=== PATIENT | male | born 1990 | race African-American/Black ===

== ENCOUNTER 2019-01-22 11:45 | Emergency (ER) | payer OTHER, SELFPAY ==
--- NOTE | 2019-01-22 13:13 | EDPHYS ---
Physician Documentation [facility] Name: Tyler Latif Age: 28 yrs Sex: Male : 1990 Arrival Date: 01/22/2019 Time: 11:48 Bed 20 Private MD: ED Physician Saroj Little HPI: 01/22 12:15 This 28 yrs old Black Male presents to ER via Ambulatory with complaints of Boil. kav 12:36 This 28 yrs old Black Male presents to ER via Ambulatory with complaints of Boil. kav 12:34 Onset: The symptoms/episode began/occurred acutely. kav 12:36 The patient presents with an abscess of the right inner thigh, The patient presents kav with cellulitis of the right inner thigh. Description: The affected area is moderate sized, localized, draining, erythematous, warm. Onset: The symptoms/episode began/occurred acutely, 3 day(s) ago. Possible cause(s): unknown. Associated signs and symptoms: Pertinent positives: discharge, erythema, Pertinent negatives: fever. Modifying factors: the symptoms are alleviated by nothing, the symptoms are aggravated by movement, squeezing the lesion and expressing the contents. Severity of symptoms: At their worst the symptoms were moderate, just prior to arrival. The patient has experienced similar episodes in the past, multiple times, and the symptoms today are exactly the same. The patient has not recently seen a physician. Historical: - Allergies: 12:06 No Known Allergies; hb - Home Meds: 12:06 Glimepiride Oral [Active]; lisinopril 10 mg Oral tab 1 tab once daily [Active]; hb - PMHx: 12:06 Diabetes - NIDDM; Hypertension; hb - Immunization history:: Adult Immunizations up to date. - Social history:: Smoking status: Patient uses tobacco products, denies chronic smoking, but will smoke occasionally. - Ebola Screening: : No symptoms or risks identified at this time. - Family history:: not pertinent. - Hospitalizations: : No recent hospitalization is reported. ROS: 12:39 Constitutional: Negative for fever, chills, and weight loss, Eyes: Negative for injury, kav pain, redness, and discharge, ENT: Negative for injury, pain, and discharge, Neck: Negative for injury, pain, and swelling, Cardiovascular: Negative for chest pain, palpitations, and edema, Respiratory: Negative for shortness of breath, cough, wheezing, and pleuritic chest pain, Abdomen/GI: Negative for abdominal pain, nausea, vomiting, diarrhea, and constipation, Back: Negative for injury and pain, : Negative for injury, bleeding, discharge, and swelling, MS/Extremity: Negative for injury and deformity, Neuro: Negative for headache, weakness, numbness, tingling, and seizure, Psych: Negative for depression, anxiety, suicide ideation, homicidal ideation, and hallucinations, Allergy/Immunology: Negative for hives, rash, and allergies, Endocrine: Negative for neck swelling, polydipsia, polyuria, polyphagia, and marked weight changes, Hematologic/Lymphatic: Negative for swollen nodes, abnormal bleeding, and unusual bruising. 12:39 Skin: Positive for abscess, cellulitis, erythema, swelling, of the right inner thigh. Exam: 12:39 Constitutional: This is a well developed, well nourished patient who is awake, alert, kav and in no acute distress. Head/Face: Normocephalic, atraumatic. Eyes: Pupils equal round and reactive to light, extra-ocular motions intact. Lids and lashes normal. Conjunctiva and sclera are non-icteric and not injected. Cornea within normal limits. Periorbital areas with no swelling, redness, or edema. ENT: Nares patent. No nasal discharge, no septal abnormalities noted. Tympanic membranes are normal and external auditory canals are clear. Oropharynx with no redness, swelling, or masses, exudates, or evidence of obstruction, uvula midline. Mucous membranes moist. Neck: Trachea midline, no thyromegaly or masses palpated, and no cervical lymphadenopathy. Supple, full range of motion without nuchal rigidity, or vertebral point tenderness. No Meningismus. Chest/axilla: Normal chest wall appearance and motion. Nontender with no deformity. No lesions are appreciated. Cardiovascular: Regular rate and rhythm with a normal S1 and S2. No gallops, murmurs, or rubs. Normal PMI, no JVD. No pulse deficits. Respiratory: Lungs have equal breath sounds bilaterally, clear to auscultation and percussion. No rales, rhonchi or wheezes noted. No increased work of breathing, no retractions or nasal flaring. Abdomen/GI: Soft, non-tender, with normal bowel sounds. No distension or tympany. No guarding or rebound. No evidence of tenderness throughout. Back: No spinal tenderness. No costovertebral tenderness. Full range of motion. Male : Normal genitalia with no discharge or lesions. MS/ Extremity: Pulses equal, no cyanosis. Neurovascular intact. Full, normal range of motion. Neuro: Awake and alert, GCS 15, oriented to person, place, time, and situation. Cranial nerves II-XII grossly intact. Motor strength 5/5 in all extremities. Sensory grossly intact. Cerebellar exam normal. Normal gait. Psych: Awake, alert, with orientation to person, place and time. Behavior, mood, and affect are within normal limits. 12:39 Skin: abscess, that is moderate sized, of the right leg and right inner thigh, with drainage, that is serosanguinous, cellulitis, that is moderate, well demarcated, on the right inner thigh. Vital Signs: 12:04 BP 155 / 115; Pulse 122; Resp 18; Temp 96.9(TE); Pulse Ox 97% on R/A; Pain 9/10; hb 13:31 BP 117 / 57; Pulse 100; Resp 16; Pulse Ox 100% ; bp MDM: 12:15 Medical screening is not applicable. kav 12:39 Differential diagnosis: abscess, cellulitis. Data reviewed: vital signs, nurses notes. kav Administered Medications: No medications were administered Disposition: 14:59 Co-signature as Attending Physician, Saroj Little MD I agree with the assessment and kdr plan of care. Disposition: 01/22/19 13:12 Discharged to Home. Impression: Cutaneous abscess of groin, Cellulitis of groin. - Condition is Stable. - Discharge Instructions: Skin Abscess, Cellulitis, Adult. - Prescriptions for Clindamycin HCl 300 mg Oral Capsule - take 1 capsule by ORAL route every 6 hours for 10 days; 40 capsule. Tramadol 50 mg Oral Tablet - take 1 tablet by ORAL route every 8 hours as needed; 12 tablet. Bactrim DS 800- 160 mg Oral Tablet - take 1 tablet by ORAL route every 12 hours for 10 days; 20 tablet. - Work release form, Medication Reconciliation Form, Thank You Letter, Antibiotic Education, Prescription Opioid Use form. - Follow up: Private Physician; When: 5 - 6 days; Reason: Recheck today's complaints, Continuance of care, Re-evaluation by your physician. - Problem is new. - Symptoms are unchanged. Signatures: Saroj Little MD MD kdr Vern, Katherine, BRICK OR BLOCK MAKER BRICK OR BLOCK MAKER Paloma Avila RN RN iw Trish Alvarado RN RN Corrections: (The following items were deleted from the chart) :39 12:35 Onset: The symptoms/episode began/occurred acutely, 3 day(s) ago, ka ka :39 12:35 Associated signs and symptoms: Pertinent positives: The patient does not have any [facility] pertinent positive signs or symptoms associated with pediatric illness. Pertinent negatives: fever, ka :39 12:35 Modifying factors: The patient symptoms are alleviated by remaining still, the ka patient symptoms are aggravated by hot environment, movement, ka :39 12:35 The patient has experienced similar episodes in the past, several times, today's ka symptoms are similar, to when the patient was apparently diagnosed with MRSA, [facility] :39 12:35 The patient has not recently seen a physician, [facility] 13:31 13:12 01/22/2019 13:12 Discharged to Home. Impression: Cutaneous abscess of groin; iw Cellulitis of groin. Condition is Stable. Forms are Medication Reconciliation Form, Thank You Letter, Antibiotic Education, Prescription Opioid Use. Follow up: Private Physician; When: 5 - 6 days; Reason: Recheck today's complaints, Continuance of care, Re-evaluation by your physician. Problem is new. Symptoms are unchanged. ka
--- NOTE | 2019-01-22 13:13 | ER ---
Nurse's Notes [facility] Name: Tyler Latif Age: 28 yrs Sex: Male : 1990 Arrival Date: 01/22/2019 Time: 11:48 Bed 20 Private MD: Diagnosis: Cutaneous abscess of groin;Cellulitis of groin Presentation: 01/22 12:03 Presenting complaint: Right upper thigh abscess x 3 days. Transition of care: patient hb was not received from another setting of care. Onset of symptoms was January 19, 2019. Risk Assessment: Do you want to hurt yourself or someone else? Patient reports no desire to harm self or others. Care prior to arrival: None. 12:03 Method Of Arrival: Ambulatory hb 12:03 Acuity: SAUL 3 hb Historical: - Allergies: 12:06 No Known Allergies; hb - Home Meds: 12:06 Glimepiride Oral [Active]; lisinopril 10 mg Oral tab 1 tab once daily [Active]; hb - PMHx: 12:06 Diabetes - NIDDM; Hypertension; hb - Immunization history:: Adult Immunizations up to date. - Social history:: Smoking status: Patient uses tobacco products, denies chronic smoking, but will smoke occasionally. - Ebola Screening: : No symptoms or risks identified at this time. - Family history:: not pertinent. - Hospitalizations: : No recent hospitalization is reported. Screenin:31 Abuse screen: Denies threats or abuse. Denies injuries from another. Nutritional bp screening: No deficits noted. On. Tuberculosis screening: No symptoms or risk factors identified. Fall Risk None identified. Assessment: 12:15 General: Appears in no apparent distress. comfortable, Behavior is calm, cooperative, bp appropriate for age. Pain: Complains of pain in right inner thigh. Derm: Abscess located on right inner thigh is golf ball sized, has purulent drainage. 13:30 Reassessment: PT D/C HOME AMBULATORY WITH FAMILY, DX WITH CUTANEOUS ABSCESS. bp Vital Signs: 12:04 BP 155 / 115; Pulse 122; Resp 18; Temp 96.9(TE); Pulse Ox 97% on R/A; Pain 9/10; hb 13:31 BP 117 / 57; Pulse 100; Resp 16; Pulse Ox 100% ; bp ED Course: 11:48 Patient arrived in ED. as 12:04 Triage completed. hb 12:06 Arm band placed on. hb 12:10 Patient has correct armband on for positive identification. Placed in gown. Bed in low bp position. Call light in reach. Side rails up X2. 12:14 Tyler Palma, RN is Primary Nurse. bp 12:15 Sandrita Patton FNP is PHCP. kav 12:15 Saroj Little MD is Attending Physician. kav 13:32 No provider procedures requiring assistance completed. Patient did not have IV access bp during this emergency room visit. Administered Medications: No medications were administered Outcome: 13:12 Discharge ordered by . kav 13:31 Patient left the ED. iw Signatures: Sandrita Patton FNP FNP kav Martinez, Amelia as Paloma Marin RN RN iw Trish Alvarado, RN RN hb Tyler Palma, RN RN bp
[2019-01-22 13:41] VITALS: BP 155/115; TEMP 96.9; O2SAT 97
== END 2019-01-22 13:31 | disposition home or self-care (01) ==
LOC: ER 11:45
DX: L03.314 Cellulitis of groin (principal); I10 Essential (primary) hypertension; E11.9 Type 2 diabetes mellitus without complications; Z72.0 Tobacco use
CPT/HCPCS: 99281

== ENCOUNTER 2022-11-06 16:53 | Emergency (ER) | payer SELFPAY ==
--- OUTSIDE RECORDS SUMMARY | 2022-11-06 16:59 | XMS REPORT | Continuity of Care Document ---
:1990 Author Organization [facility] t Address [address] [place] [address] Care Team Providers Name Role Phone Benoit Barrios DO Primary Care Physician Hawa Lorenzo RN Attending Clinician MARGUERITE INTERIANO Attending Clinician Unavailable Marguerite Interiano MD Attending Clinician Triny Lang Attending Clinician Vtc-Lab Attending Clinician Unavailable Leilani Oliva LVN Attending Clinician Della Kaye MD Attending Clinician Reina Garcia MD Attending Clinician DELLA KAYE Attending Clinician Unavailable Cheikh Miguel MD Attending Clinician Dank Corrigan MD Attending Clinician Reina Garcia MD Admitting Clinician Problems Condition Condition Condition Status Onset Resolution Last Treating Co mments Source Name Details Category Date Date Treatment Clinician Date Morbid Morbid Disease Active Univers obesity obesity 9-28 [place] of [place] mass index mass index 00 Me dical of of Branch 40.0-49.9 40.0-49.9 Sepsis Sepsis Disease Active Univers 9-28 ity of 00:00: [place] 00 Medical Branch Hypotensio Hypotensio Disease Active U nivers n n 9-28 ity of 00:00: [place] 00 Medical Branch Allergies, Adverse Reactions, Alerts Allergy Allergy Status Severity Reaction(s) Onset Inactive Treating Comm ents Source Name Type Date Date Clinician Rodrick Calles Active Other - See 2014-11 'liver U nivers n ty to comments 11-23 swelling" ity o f adverse 00:00: [place] reaction 00 Medical s Branch Social History Social Habit Start Date Stop Date Quantity Comments Source Exposure to Not sure [facility] SARS-CoV-2 (event) Medica l Branch Tobacco use and 2021-08-15 2021-08-[address] [facility] exposure 00:00:00 00:00:00 Medical Branch Education 2021-08-15 2021-08-15 13 [facility] 00:00:00 00:00:00 Medical Branch Sex Assigned At [address] 1990 [facility] 00:00:00 00:00:00 Medical Branch Smoking Status Start Date Stop Date Source Former smoker 2021-08-15 00:00:00 2021-08-15 00:00:00 [facility] Medical Branch Medications Ordered Filled Start Stop Current Ordering Indication Dosage Frequency Signature Comments Components Source Medication Medication Date Date Medication? Clinician (SIG) Name Name gabapentin 2020-11- No [id number] 200mg Take 2 Univers 100 mg 0-11 11-08 capsules ity of capsule 00:00: 00:00 by mouth 2 Lucian as 00 :00 (two) Medical times Branch daily. aspirin 81 2020-11 Yes [id number] 81mg Take 1 U nivers mg chewable 0-08 tablet by ity of tablet 00:00: mouth [place] 00 daily. Medical Branch atorvastati 2020-11 Yes [id number] 20mg Take 1 Univers n 20 mg 0-07 tablet by ity of tablet 00:00: mouth at [place] 00 bedtime. Medical Branch insulin 2020-11 Yes [id number] Inject 3 Un raul regular 0-07 units SQ ity of human 100 00:00: daily with [place] unit/mL 00 lunch Medical injection Branch lancets 21 2020-11 Yes [id number] Use as U nivers gauge Misc 0-07 directed ity o f 00:00: [place] 00 Medical Branch blood sugar 2020-11 Yes [id number] Use as Univers diagnostic 0-07 directed ity o f strip 00:00: [address] Insulin 2020-11 Yes [id number] Use as Univ ers [place], 0-07 directed ity of Disposable, 00:00: [place] 32 gauge x 00 Medical 16" Ndle Branch insulin NPH 2020-11- No [id number] 14U inject 14 Univers and regular 0-07 11-07 Units ity of human 70-30 00:00: 04:59 under the [place] 100 unit/mL 00 :00 skin 2 Medica l (70-30) (two) Branch injection times daily before breakfast and dinner for 30 days. Immunizations Ordered Immunization Filled Immunization Date Status Commen ts Source Name Name Pneumococcal 2014-05-20 Completed [place] o f Polysaccharide, 00:00:00 [place] Med ical PPSV23 (PNEUMOVAX) Branch Meningococcal 2013-02-19 Completed [facility] Polysaccharide 00:00:00 [facility] keturah (groups A, C, Y and Branc h W-135) conjugate vaccine (MCV4P) TDAP 2013-02-19 Completed [facility] 00:00:00 [facility] Vital Signs Vital Name Observation Time Observation Value Comments Source Systolic blood 2021-08-28 20:36:00 139 mm[Hg] Univer sity of pressure [facility] Diastolic blood 2021-08-28 20:36:00 93 mm[Hg] Unive rsity of [facility] Heart rate 2021-08-28 20:36:00 90 /min [facility] Body temperature 2021-08-28 20:33:00 36.33 [facility] height 2021-08-28 20:33:00 182.9 cm [facility] Body weight 2021-08-28 20:33:00 159.031 kg [facility] BMI 2021-08-28 20:33:00 47.55 kg/m2 [facility] Oxygen saturation in 2021-08-28 20:33:00 99 /min [facility] Arterial blood by [facility] Pulse oximetry Branch Procedures Procedure Date / Time Performed Performing Clinician Diamond elizondo URINALYSIS 2021-08-28 21:53:00 Badalamenti, [facility] PROTEIN CREAT RATIO 2021-08-28 21:53:00 Marguerite Interiano [facility] URINE RANDOM [facility] Branch PHOSPHORUS 2021-08-28 21:50:00 Laisha [facility] URIC ACID 2021-08-28 21:50:00 Marguerite Interiano [facility] MAGNESIUM 2021-08-28 21:50:00 Laisha [facility] COMP. METABOLIC PANEL 2021-08-28 21:50:00 Marguerite Interiano [facility] ([id number]) [facility] CBC WITH DIFF 2021-08-28 21:50:00 Laisha [facility] Encounters Start End Encounter Admission Attending Care Care Encounter Source Date/Time Date/Time Type Type Clinicians Facility Department ID 2021-09-27 2021-09-27 Patient Hawa Lorenzo [id number] Univers 00:00:00 00:00:00 Outreach E ARSHAD [id number] i [id number] [phone] [facility] 403 Branch 2021-09-25 2021-09-25 [id number] Univers 15:30:00 15:30:00 , MARGUERITE patel [facility] 2021-09-24 2021-09-24 Refill [facility] [id number] Univers 00:00:00 00:00:00 , Marguerite CREWS [id number] ity ulysses [id number] [place] [phone] [facility] AND [place] [address] [facility] 2021-09-21 2021-09-21 Patient Hawa Lorenzo [id number] Univers 00:00:00 00:00:00 Outreach E ARSHAD [id number] [id number] [id number] [facility] [address] Branch 2021-09-08 2021-09-08 Telephone [facility] [id number] Univers 00:00:00 00:00:00 , Marguerite CREWS [id number] ity [id number] [phone] [address] DIABETES [facility] 2021-09-04 2021-09-04 Patient Hawa Lorenzo [id number] Univers 00:00:00 00:00:00 Outreach E Arshad [id number] i ty [id number] [phone] [facility] [address] Branch 2021-09-01 2021-09-01 Patient Chace Lang [id number] Univers 00:00:00 00:00:00 Outreach Triny E Arshad [id number] i ty [id number] [id number] [facility] [address] Branch 2021-08-31 2021-08-31 Patient Hawa Lorenzo [id number] Univers 09:10:53 11:10:53 Outreach E Arshad [id number] i ty [place] [id number] [id number] [facility] 403 Branch 2021-08-28 2021-08-28 Graphic Manager Vt-Lab [facility] [id number] Univers 16:41:20 16:56:20 Visit Marguerite Interiano [id number] 0 it[id number] [phone] [facility] [place] [address] [facility] 2021-08-28 2021-08-28 Office Laisha [facility] [id number] Univers 15:03:38 15:33:38 Visit Marguerite [id number] ity [id number] [phone] [facility] [place] [address] [facility] 2021-08-28 2021-08-28 Outpatient R [facility] [id number] Univers 15:30:00 15:30:00 , MARGUERITE patel of [facility] 2021-08-28 2021-08-28 Patient Hawa Lorenzo 1.2.840.114 [id number] Univers 00:00:00 00:00:00 Outreach E Arshad [id number] i ty [id number] [phone] [address] 2021-08-25 2021-08-25 Transition Chace Oliva [id number] Univers 00:00:00 00:00:00 of Care Leilani Arshad [id number] ity [id number] [id number] [address] 2021-08-15 2021-08-24 Hospital VargasDella [facility] [id number] Univers 09:58:00 17:20:00 Encounter Reina Garcia [facility] [id number] ity of [place] [id number] [facility] [phone] [address] ([facility]) 2021-08-17 2021-08-17 Patient Hawa Lorenzo [id number] Univers 00:00:00 00:00:00 Outreach E Arshad [id number] i [id number] [id number] [address] 2021-08-15 2021-08-15 Emergency X VARGAS [facility] ERT [id number] Univers 09:58:00 09:58:00 DELLA ity of [facility] 2019-12-29 2019-12-29 [facility] [id number] Univers 01:24:33 02:37:00 Cheikh Arriaga [id number] ity of [place] [id number] [facility] [phone] [place] [id number] Branch 2019-07-30 2019-07-30 Emergency [facility] [id number] Univers 08:38:41 09:38:00 Dank Arriaga [id number] i ty [place] [id number] [facility] [phone] [facility] 084 Branch Results This patient has no known results.
[2022-11-06] MEDS ORDERED: IBUPROFEN 400 MG TAB ONE (17:19)
--- NOTE | 2022-11-06 18:20 | RAD REPORT ---
EXAM DESCRIPTION: RAD - Ankle Left 3 View - 11/06/2022 6:10 pm CLINICAL HISTORY: PAIN COMPARISON: Foot Left 3 View dated 11/06/2022 FINDINGS: No fracture or dislocation is seen. Moderate soft tissue swelling is evident. Small calcan eal spurs.
--- NOTE | 2022-11-06 18:21 | RAD REPORT ---
EXAM DESCRIPTION: RAD - Foot Left 3 View - 11/06/2022 6:10 pm CLINICAL HISTORY: PAIN COMPARISON: No comparisons FINDINGS: Moderate soft tissue swelling is seen along the medial aspect of the foot. No fracture or dislocation is evident. Small calcaneal spurs.
--- NOTE | 2022-11-06 18:36 | EDPHYS ---
Physician Documentation [facility] Name: Tyler Latif Age: 31 yrs Sex: Male : 1990 Arrival Date: 11/06/2022 Time: 16:55 Bed 9 Private MD: ED Physician Miguel Deleon HPI: 11/06 17:20 This 31 yrs old Black Male presents to ER via Ambulatory with complaints of Foot Injury.cp 17:20 The patient presents with an injury, pain, that is acute. The complaints affect the cp left ankle and left foot. Context: The problem was sustained at work, resulted from a mis-step, while stepping out of vehicle, the patient can partially bear weight, the patient is able to ambulate, with moderate difficulty. Onset: The symptoms/episode began/occurred today. Associated signs and symptoms: The patient has no apparent associated signs or symptoms. Treatment prior to arrival includes: no previous treatment. Historical: - Allergies: 17:02 No Known Allergies; iw - Home Meds: 17:02 Insulin: Regular Sub-Q [Active]; metoprolol tartrate 50 mg Oral tab [Active]; iw - PMHx: 17:02 Diabetes - NIDDM; Hypertension; iw - PSHx: 17:02 None; iw - Immunization history:: Client reports having NOT received the Covid vaccine. ROS: 17:25 Constitutional: Negative for body aches, chills, fever. cp 17:25 Eyes: Negative for injury, pain, redness, and discharge. cp 17:25 ENT: Negative for drainage from ear(s), ear pain, sore throat, difficulty swallowing, difficulty handling secretions. 17:25 Neck: Negative for pain with movement, pain at rest, stiffness. 17:25 Cardiovascular: Negative for chest pain. 17:25 Respiratory: Negative for cough, shortness of breath, wheezing. 17:25 Abdomen/GI: Negative for abdominal pain, nausea, vomiting, and diarrhea. 17:25 Back: Negative for pain at rest, pain with movement. 17:25 MS/extremity: Positive for pain, of the left ankle and left foot, Negative for paresthesias. 17:25 Neuro: Negative for altered mental status, dizziness, headache, weakness. 17:25 All other systems are negative. Exam: 17:30 Constitutional: The patient appears in no acute distress, alert, awake, non-toxic, well cp developed, well nourished, obese. 17:30 Head/Face: Normocephalic, atraumatic. cp 17:30 Neck: ROM/movement: is normal, is supple, without pain, no range of motions limitations. 17:30 Chest/axilla: Inspection: normal. 17:30 Cardiovascular: Rate: normal. 17:30 Respiratory: the patient does not display signs of respiratory distress, Respirations: normal, no use of accessory muscles, no retractions, labored breathing, is not present. 17:30 Abdomen/GI: Inspection: abdomen appears normal. 17:30 Back: pain, is absent, ROM is normal. 17:30 Musculoskeletal/extremity: Extremities: grossly normal except: noted in the mid lateral plantar surface of left foot and lateral ankle: pain and tenderness to palpation, pain with inversion of ankle, mild swelling noted, Perfusion: the extremity is normally perfused throughout, the left ankle and left foot Sensation intact. Vital Signs: 17:00 BP 152 / 101; Pulse 90; Resp 17; Temp 97.7(TE); Pulse Ox 100% on R/A; Weight 163.29 kg; iw Height 6 ft. 0 in. (182.88 cm); Pain 6/10; 17:00 Body Mass Index 48.82 (163.29 kg, 182.88 cm) iw Procedures: 18:45 Splinting: Splint applied to left ankle and left foot using walking boot. applied by cp nurse. MDM: 17:07 Patient medically screened. cp 17:30 Differential diagnosis: dislocation, closed fracture, sprain. cp 18:35 Data reviewed: vital signs, nurses notes, radiologic studies, plain films. cp 18:35 Test interpretation: by ED physician or midlevel provider: plain radiologic studies. cp Counseling: I had a detailed discussion with the patient and/or guardian regarding: the historical points, exam findings, and any diagnostic results supporting the discharge/admit diagnosis, radiology results, the need for outpatient follow up, a family practitioner, to return to the emergency department if symptoms worsen or persist or if there are any questions or concerns that arise at home. Response to treatment: the patient's symptoms have mildly improved after treatment, and as a result, I will discharge patient. 11/06 17:12 Order name: XRAY Foot LEFT 3 View; Complete Time: 18:29 cp 11/06 18:29 Interpretation: Reviewed report. cp 11/06 17:12 Order name: XRAY Ankle LEFT 3 view; Complete Time: 18:29 cp 11/06 18:29 Interpretation: Report reviewed. cp 11/06 18:28 Order name: Walking boot; Complete Time: 18:51 cp 11/06 18:28 Order name: Crutches; Complete Time: 18:51 cp Administered Medications: 17:23 Drug: Ibuprofen 800 mg Route: PO; iw Disposition Summary: 11/06/22 18:36 Discharge Ordered Location: Home cp Problem: new cp Symptoms: have improved cp Condition: Stable cp Diagnosis - Other sprain of left foot cp - Sprain of ankle - left cp Followup: cp - With: Private Physician - When: 1 week - Reason: Recheck today's complaints Discharge Instructions: - Discharge Summary Sheet cp - Ankle Sprain cp - Foot Sprain cp - RICE Therapy for Routine Care of Injuries cp - Form - Excuse from Work, School, or Physical Activity cp Forms: - Medication Reconciliation Form cp - Thank You Letter cp - Antibiotic Education cp - Prescription Opioid Use cp - Work release form cp Prescriptions: - Ibuprofen 800 mg Oral Tablet - take 1 tablet by ORAL route every 8 hours As needed take with food; 30 tablet; cp Refills: 0, Product Selection Permitted Signatures: Dispatcher [employer] Paloma Waggoner RN RN iw Tristan Mcrae PA PA cp Corrections: (The following items were deleted from the chart) 17:03 17:02 Home Meds: lisinopril 10 mg Oral tab 1 tab once daily; iw iw
--- NOTE | 2022-11-06 18:36 | ER ---
Nurse's Notes [facility] Name: Tyler Latif Age: 31 yrs Sex: Male : 1990 Arrival Date: 11/06/2022 Time: 16:55 Bed 9 Private MD: Diagnosis: Other sprain of left foot;Sprain of ankle-left Presentation: 11/06 17:00 Chief complaint: Patient states: Exiting the van and hurt left foot at 1200 today. iw Coronavirus screen: Vaccine status: Patient reports being unvaccinated. At this time, the client does not indicate any symptoms associated with coronavirus-19. Ebola Screen: No symptoms or risks identified at this time. Initial Sepsis Screen: Does the patient meet any 2 criteria? No. Patient's initial sepsis screen is negative. Does the patient have a suspected source of infection? No. Patient's initial sepsis screen is negative. Risk Assessment: Do you want to hurt yourself or someone else? Patient reports no desire to harm self or others. Onset of symptoms was November 06, 2022 at 12:00. 17:00 Method Of Arrival: Ambulatory iw 17:00 Acuity: SAUL 4 iw Triage Assessment: 17:02 General: Appears in no apparent distress. uncomfortable, Behavior is calm, cooperative, iw appropriate for age. Pain: Complains of pain in left foot Pain currently is 6 out of 10 on a pain scale. Musculoskeletal: pain with ambulation. Injury Description: pain. Historical: - Allergies: 17:02 No Known Allergies; iw - Home Meds: 17:02 Insulin: Regular Sub-Q [Active]; metoprolol tartrate 50 mg Oral tab [Active]; iw - PMHx: 17:02 Diabetes - NIDDM; Hypertension; iw - PSHx: 17:02 None; iw - Immunization history:: Client reports having NOT received the Covid vaccine. Vital Signs: 17:00 BP 152 / 101; Pulse 90; Resp 17; Temp 97.7(TE); Pulse Ox 100% on R/A; Weight 163.29 kg; iw Height 6 ft. 0 in. (182.88 cm); Pain 6/10; 17:00 Body Mass Index 48.82 (163.29 kg, 182.88 cm) iw ED Course: 16:55 Patient arrived in ED. mr 16:56 Page, Tristan, PA is PHCP. cp 16:56 Miguel Deleon DO is Attending Physician. cp 17:02 Triage completed. iw 17:02 Arm band placed on right wrist. iw 17:23 Paloma Marin RN is Primary Nurse. iw 18:12 XRAY Foot LEFT 3 View In Process Unspecified. EDMS 18:12 XRAY Ankle LEFT 3 view In Process Unspecified. EDMS Administered Medications: 17:23 Drug: Ibuprofen 800 mg Route: PO; iw Outcome: 18:36 Discharge ordered by MD. cp 19:15 Patient left the ED. iw Signatures: Dispatcher [employer] EDMS Hawa Olivo mr Paloma Marin RN RN iw Tristan Mcrae PA PA cp Corrections: (The following items were deleted from the chart) 17:03 17:02 Home Meds: lisinopril 10 mg Oral tab 1 tab once daily; iw iw
[2022-11-06 19:18] VITALS: BP 152/101; TEMP 97.7; O2SAT 100
== END 2022-11-06 19:15 | disposition home or self-care (01) ==
LOC: ER 16:53
DX: S93.692A Other sprain of left foot, initial encounter (principal); S93.402A Sprain of unspecified ligament of left ankle, initial encounter
CPT/HCPCS: 99283

== ENCOUNTER 2022-12-27 08:00 | Emergency (ER) | payer SELFPAY ==
--- OUTSIDE RECORDS SUMMARY | 2022-12-27 08:03 | XMS REPORT | Continuity of Care Document ---
:1990 Author Organization [facility] t Address [address] [place] [address] Care Team Providers Name Role Phone Benoit [...] nivers n n 9-28 ity of 00:00: [place] 00 Medical Branch Allergies, Adverse Reactions, Alerts [...] Quantity Comments Source Exposure to Not sure [facility] SARS-CoV-2 (event) Medica l Branch Tobacco use and 2021-08-15 2021-08-15 Never used [facility] exposure 00:00:00 00:00:00 Medical Branch Education 2021-08-15 2021-08-15 13 [facility] 00:00:00 00:00:00 Medical Branch Sex Assigned At [birth year] [facility] 00:00:00 00:00:00 Medical Branch Smoking Status Start Date Stop Date Source Former smoker 2021-08-15 00:00:00 2021-08-15 00:00:00 [facility] Medical Branch Medications Ordered Filled Start Stop Current Ordering Indication Dosage Frequency Signature Comments Components Source Medication Medication Date Date Medication? Clinician (SIG) Name Name gabapentin 2020-11- No [id number] 200mg Take 2 Univers 100 mg 0-11 11-08 capsules ity of capsule 00:00: 00:00 by mouth 2 Lucian as 00 :00 (two) Medical times Branch daily. aspirin 81 2020-11 Yes [id number] 81mg Take 1 U nivers mg chewable 0-08 tablet by ity of tablet 00:00: mouth [place] 00 daily. Medical Branch atorvastati 2020-11 Yes [id number] 20mg Take 1 Univers n 20 mg 0-07 tablet by ity of tablet 00:00: mouth at [place] 00 bedtime. Medical Branch insulin 2020-11 Yes [id number] Inject 3 Un raul regular 0-07 units SQ ity of human 100 00:00: daily with [place] unit/mL 00 lunch Medical injection Branch lancets 21 2020-11 Yes [id number] Use as U nivers gauge Misc 0-07 directed ity o f 00:00: [place] 00 Medical Branch blood sugar 2020-11 Yes [id number] Use as Univers diagnostic 0-07 directed ity o f strip 00:00: [address] Insulin 2020-11 Yes [id number] Use as Univ ers [place], 0-07 directed ity of Disposable, 00:00: [place] 32 gauge x 00 Medical 16" Ndle Branch insulin NPH 2020-11- No [id number] 14U inject 14 Univers and regular 0-07 11-07 Units ity of human 70-30 00:00: 04:59 under the [place] 100 unit/mL 00 :00 skin 2 Medica l (70-30) (two) Branch injection times daily before breakfast and dinner for 30 days. Immunizations Ordered Immunization Filled Immunization Date Status Commen ts Source Name Name Pneumococcal 2014-05-20 Completed [place] o f Polysaccharide, 00:00:00 [place] Med ical PPSV23 (PNEUMOVAX) Branch Meningococcal 2013-02-19 [facility] Polysaccharide 00:00:00 [facility] keturah (groups A, C, Y and Branc h W-135) conjugate vaccine (MCV4P) TDAP 2013-02-19 [facility] 00:00:00 [facility] Vital Signs Vital Name Observation Time Observation Value Comments Source Systolic blood 2021-08-28 20:36:00 139 mm[Hg] Univer sity of pressure [facility] Diastolic blood 2021-08-28 20:36:00 93 mm[Hg] Unive rsity of [facility] Heart rate 2021-08-28 20:36:00 90 /min [facility] Body temperature 2021-08-28 20:33:00 36.33 [facility] Body height 2021-08-28 20:33:00 182.9 cm [facility] Body weight 2021-08-28 20:33:00 159.031 kg [facility] BMI 2021-08-28 20:33:00 47.55 kg/m2 [facility] Oxygen saturation in 2021-08-28 20:33:00 99 /min [facility] Arterial blood by [facility] Pulse oximetry Branch Procedures Procedure Date / Time Performed Performing Clinician Diamond elizondo URINALYSIS 2021-08-28 21:53:00 Badalamenti, Barney [facility] PROTEIN CREAT RATIO 2021-08-28 21:53:[address] [facility] URINE RANDOM [facility] Branch PHOSPHORUS 2021-08-28 21:50:00 Laisha [facility] URIC ACID 2021-08-28 21:50:00 Marguerite Interiano [facility] MAGNESIUM 2021-08-28 21:50:00 Laisha [facility] COMP. METABOLIC PANEL 2021-08-28 21:50:00 Marguerite Interiano [facility] ([id number]) [facility] CBC WITH DIFF 2021-08-28 21:50:00 Laisha [facility] Encounters Start End Encounter Admission Attending Care Care Encounter Source Date/Time Date/Time Type Type Clinicians Facility Department ID 2021-09-27 2021-09-27 Patient Hawa Lorenzo [id number] Univers 00:00:00 00:00:00 Outreach E ARSHAD [id number] [id number] [id number] [facility] 403 Branch 2021-09-25 2021-09-25 Outpatient R [facility] [place] [id number] Univers 15:30:00 15:30:00 , MARGUERITE patel [facility] [place] [facility] 2021-09-24 2021-09-24 Refill [facility] [id number] Univers 00:00:00 00:00:00 , Marguerite CREWS [id number] ity ulysses [id number] [id number] [facility] 312 Branch DI[facility] 2021-09-21 2021-09-21 Patient Hawa Lorenzo [id number] Univers 00:00:00 00:00:00 Outreach E ARSHAD [id number] [id number] [id number] [facility] 403 Branch 2021-09-08 2021-09-08 Telephone [facility] [id number] Univers 00:00:00 00:00:00 , Marguerite CREWS [id number] [id number] [id number] [address] DIABETES CLINIC 2021-09-04 2021-09-04 Patient Hawa Lorenzo [id number] Univers 00:00:00 00:00:00 Outreach E Arshad [id number] i ty [id number] [phone] [facility] 403 Branch 2021-09-01 2021-09-01 Patient Chace Lang [id number] Univers 00:00:00 00:00:00 Outreach Triny E Arshad [id number] i ty [id number] [id number] [facility] 403 Branch 2021-08-31 2021-08-31 Patient Hawa Lorenzo [id number] Univers 09:10:53 11:10:53 Outreach E Arshad [id number] i ty [place] [id number] [id number] [facility] 403 Branch 2021-08-28 2021-08-28 Civil Laboratory Technician [facility] 1.2.840.114 [id number] Univers 16:41:20 16:56:20 Visit Marguerite Interiano [id number] 0 [id number] [phone] [facility] [address] [place] [facility] 2021-08-28 2021-08-28 Office Laisha [facility] 1.2.840.114 [id number] Univers 15:03:38 15:33:38 Visit Marguerite [id number] [id number] [phone] [facility] [address] [place] DIABETES [facility]INIC 2021-08-28 2021-08-28 Outpatient R [facility] [id number] Univers 15:30:00 15:30:00 , MARGUERITE patel of [facility] 2021-08-28 2021-08-28 Patient Hawa Lorenzo 1.2.840.114 [id number] Univers 00:00:00 00:00:00 Outreach E Arshad [id number] i ty [id number] [id number] [address] 2021-08-25 2021-08-25 Transition Chace Oliva 1.2.840.114 [id number] Univers 00:00:00 00:00:00 of Care Leilani Arshad [id number] ity [id number] [phone] [address] 2021-08-15 2021-08-24 Hospital VargasDella [facility] [id number] Univers 09:58:00 17:20:00 Encounter Reina Garcia [facility] [id number] ity of [place] [id number] [facility] [phone] [address] ([facility]) 2021-08-17 2021-08-17 Patient Hawa Lorenzo 1.2.840.114 [id number] Univers 00:00:00 00:00:00 Outreach E Arshad [id number] i ty [id number] [id number] [address] 2021-08-15 2021-08-15 Emergency X VARGAS [facility] ERT [id number] Univers 09:58:00 09:58:00 DELLA ity of [facility] 2019-12-29 2019-12-29 Emergency [facility] [id number] Univers 01:24:33 02:37:00 Cheikh Arriaga [id number] ity of [place] [id number] [facility] [id number] [place] [id number] Branch 2019-07-30 2019-07-30 Emergency [facility] [id number] Univers 08:38:41 09:38:00 Dank Arriaga [id number] i ty [place] [id number] [facility] [id number] [facility] 084 Branch Results This patient has no known results.
[2022-12-27 09:44] LABS: SARS-COV-2 RT PCR NEGATIVE (NEGATIVE)
--- NOTE | 2022-12-27 09:57 | EDPHYS ---
Physician Documentation [facility] Name: Tyler Latif Age: 32 yrs Sex: Male : 1990 Arrival Date: 12/27/2022 Time: 08:02 Bed 11 Private MD: ED Physician Law Santos HPI: 12/27 09:01 This 32 yrs old Black Male presents to ER via Ambulatory with complaints of body aches. pm1 09:01 The patient or guardian reports flu symptoms, body aches and runny nose. Onset: The pm1 symptoms/episode began/occurred yesterday. Severity of symptoms: in the emergency department the symptoms are unchanged. Modifying factors: The symptoms are alleviated by nothing, the symptoms are aggravated by nothing. Associated signs and symptoms: Pertinent positives: rhinorrhea, Pertinent negatives: diarrhea, fever, sore throat, vomiting, decreased PO intake. The patient has not experienced similar symptoms in the past. The patient has not recently seen a physician. Patient came to the ER with request for covid testing. Historical: - Allergies: 08:06 No Known Allergies; aa5 - PMHx: 08:06 Diabetes - NIDDM; Hypertension; aa5 - PSHx: 08:06 None; aa5 - Immunization history:: Adult Immunizations unknown. - Social history:: Smoking status: Patient reports the use of cigarette tobacco products, 5 cigarettes a day . ROS: 09:01 Eyes: Negative for injury, pain, redness, and discharge. pm1 09:01 Cardiovascular: Negative for chest pain, palpitations, and edema, Respiratory: Negative for shortness of breath, cough, wheezing, and pleuritic chest pain, Abdomen/GI: Negative for abdominal pain, nausea, vomiting, diarrhea, and constipation, Back: Negative for injury and pain, MS/Extremity: Negative for injury and deformity, Skin: Negative for injury, rash, and discoloration, Neuro: Negative for headache, weakness, numbness, tingling, and seizure. 09:01 Constitutional: Positive for body aches, Negative for fever, poor PO intake. 09:01 ENT: Positive for rhinorrhea, Negative for sore throat. 09:01 All other systems are negative. Exam: 09:01 Constitutional: This is a well developed, well nourished patient who is awake, alert, pm1 and in no acute distress. Head/Face: Normocephalic, atraumatic. 09:01 Skin: Warm, dry with normal turgor. Normal color with no rashes, no lesions, and no evidence of cellulitis. MS/ Extremity: Pulses equal, no cyanosis. Neurovascular intact. Full, normal range of motion. 09:01 Eyes: Exam is negative for acute changes, Extraocular movements: no acute changes, Conjunctiva: no acute changes, no injection. 09:01 ENT: Exam is negative for acute changes, External ear(s): no acute changes, Ear canal(s): no acute changes, TM's: no acute changes, Nose: no acute changes, Mouth: Lips: normal, moist, Oral mucosa: normal, pink and intact, moist. 09:01 Cardiovascular: Exam negative for acute changes, Rate: normal, Rhythm: regular, Pulses: no pulse deficits are appreciated. 09:01 Respiratory: Exam negative for acute changes, respiratory distress, shortness of breath, Breath sounds: are clear throughout. 09:01 Abdomen/GI: Inspection: obese Palpation: abdomen is soft and non-tender, in all quadrants. 09:01 Neuro: Exam negative for acute changes, Orientation: is normal, Mentation: is normal, Motor: is normal, moves all fours. Vital Signs: 08:05 BP 132 / 87; Pulse 105; Resp 20 S; Temp 98.8(TE); Pulse Ox 100% on R/A; Weight 163.29 aa5 kg (R); Height 6 ft. 1 in. (185.42 cm) (R); 08:05 Body Mass Index 47.50 (163.29 kg, 185.42 cm) aa5 MDM: 08:14 Patient medically screened. pm1 08:28 Data reviewed: vital signs. pm1 08:28 Differential diagnosis: viral Infection, URI, covid, flu, rsv, common cold. pm1 09:56 ED course: Patient with runny nose and productive coughing in the ER. Will give patient pm1 cough medication for his nasal congestion and runny nose and cough and will discharge with similar medication. 09:56 Counseling: I had a detailed discussion with the patient and/or guardian regarding: the pm1 historical points, exam findings, and any diagnostic results supporting the discharge/admit diagnosis, lab results, the need for outpatient follow up, to return to the emergency department if symptoms worsen or persist or if there are any questions or concerns that arise at home. 09:57 ED course: Patient with influenza symptoms greater than 48 hours therefore no tamiflu pm1 prescribed. 10:37 ED course: [place] reviewed. pm1 12/27 08:28 Order name: COVID-19/FLU A+B; Complete Time: 09:50 pm1 Administered Medications: No medications were administered Disposition: 11:27 Co-signature as Attending Physician, Law Santos MD I reviewed the patient's care rt provided by the Advanced Practice Provider and agree with the diagnosis and treatment plan. Disposition Summary: 12/27/22 09:57 Discharge Ordered Location: Home pm1 Problem: new pm1 Symptoms: have improved pm1 Condition: Stable pm1 Diagnosis - Influenza due to identified novel influenza A virus pm1 Followup: pm1 - With: Emergency Department - When: As needed - Reason: Worsening of condition Followup: pm1 - With: Private Physician - When: 2 - 3 days - Reason: Recheck today's complaints, Continuance of care, Re-evaluation by your physician Discharge Instructions: - Discharge Summary Sheet pm1 - Influenza, Adult pm1 Forms: - Medication Reconciliation Form pm1 - Thank You Letter pm1 - Work release form pm1 - Antibiotic Education pm1 - Prescription Opioid Use pm1 Prescriptions: - Guaifenesin AC 10-100 mg/5 mL Oral Liquid - take 10 milliliters by ORAL route every 4 hours As needed; 240 milliliter; pm1 Refills: 0, Product Selection Permitted Signatures: Dispatcher [facility] Marta Chang RN RN aa5 Pacheco Henderson NP [employer] pm1 Law Santos MD MD rt Corrections: (The following items were deleted from the chart) 08:06 08:06 PSHx: Unable to Obtain; aa5 aa5
--- NOTE | 2022-12-27 09:57 | ER ---
Nurse's Notes [facility] Name: Tyler Latif Age: 32 yrs Sex: Male : 1990 Arrival Date: 12/27/2022 Time: 08:02 Bed 11 Private MD: Diagnosis: Influenza due to identified novel influenza A virus Presentation: 12/27 08:05 Chief complaint: Patient states: body aches and runny nose x 2 days ago. Denies cough, aa5 denies fever. Coronavirus screen: muscle pain. Ebola Screen: Patient denies travel to an Ebola-affected area in the 21 days before illness onset. Initial Sepsis Screen: Does the patient meet any 2 criteria? No. Patient's initial sepsis screen is negative. Does the patient have a suspected source of infection? No. Patient's initial sepsis screen is negative. Risk Assessment: Do you want to hurt yourself or someone else? Patient reports no desire to harm self or others. Onset of symptoms was December 2022. 08:05 Method Of Arrival: Ambulatory aa5 08:05 Acuity: SAUL 4 aa5 Triage Assessment: 10:08 General: Appears in no apparent distress. Behavior is calm, cooperative. iw Historical: - Allergies: 08:06 No Known Allergies; aa5 - PMHx: 08:06 Diabetes - NIDDM; Hypertension; aa5 - PSHx: 08:06 None; aa5 - Immunization history:: Adult Immunizations unknown. - Social history:: Smoking status: Patient reports the use of cigarette tobacco products, 5 cigarettes a day . Screenin:07 [facility] ED Fall Risk Assessment (Adult) History of falling in the last 3 months, iw including since admission No falls in past 3 months (0 pts). Abuse screen: Denies threats or abuse. Denies injuries from another. Nutritional screening: No deficits noted. Tuberculosis screening: No symptoms or risk factors identified. Assessment: 10:07 Reassessment: Patient appears in no apparent distress at this time. Patient and/or iw family updated on plan of care and expected duration. Pain level reassessed. Patient is alert, oriented x 3, equal unlabored respirations, skin warm/dry/pink. Vital Signs: 08:05 BP 132 / 87; Pulse 105; Resp 20 S; Temp 98.8(TE); Pulse Ox 100% on R/A; Weight 163.29 aa5 kg (R); Height 6 ft. 1 in. (185.42 cm) (R); 08:05 Body Mass Index 47.50 (163.29 kg, 185.42 cm) aa5 ED Course: 08:02 Patient arrived in ED. as 08:05 Pacheco Henderson NP is PHCP. pm1 08:05 Law Santos MD is Attending Physician. pm1 08:05 Arm band placed on. aa5 08:06 Triage completed. aa5 08:29 Paloma Marin, RN is Primary Nurse. iw 08:33 COVID-19/FLU A+B Sent. kj1 10:07 Patient has correct armband on for positive identification. iw 10:07 No provider procedures requiring assistance completed. Patient did not have IV access iw during this emergency room visit. Administered Medications: No medications were administered Medication: 10:07 VIS not applicable for this client. iw Outcome: 09:57 Discharge ordered by . pm1 10:07 Discharged to home ambulatory, with family. iw 10:07 Condition: good 10:07 Discharge instructions given to patient, family, Instructed on discharge instructions, follow up and referral plans. medication usage, Demonstrated understanding of instructions, follow-up care, medications, Prescriptions given X 1. 10:08 Patient left the ED. iw Signatures: Nahomi Michel as Paloma Marin, SANJAY RN iw Marta Samuel RN RN aa5 Pacheco Henderson NP TRANSITION TEACHER pm1 Leslie Salcido kj1 Corrections: (The following items were deleted from the chart) 08:06 08:06 PSHx: Unable to Obtain; aa5 aa5
[2022-12-27 10:13] VITALS: BP 132/87; TEMP 98.8; O2SAT 100
== END 2022-12-27 10:08 | disposition home or self-care (01) ==
LOC: ER 08:00
DX: J10.1 Influenza due to other identified influenza virus with other respiratory manifestations (principal); Z20.822 Contact with and (suspected) exposure to COVID-19
CPT/HCPCS: 0240U; 99283

== ENCOUNTER 2023-08-26 07:42 | Emergency (ER) | payer OTHER, SELFPAY ==
--- OUTSIDE RECORDS SUMMARY | 2023-08-26 07:45 | XMS REPORT | Continuity of Care Document ---
:1990 Author Organization [facility] t Address [address] [facility] [address] [place] [id number] Care Team Providers Name Role Phone Pcp, Patient Does Not Have A Primary Care Physician +[id number] CARLEEN CHAVARRIA Attending Clinician Unavailable CARLEEN CHAVARRIA Attending Clinician Unavailable Doctor Unassigned, [place] Attending Clinician Unavailable Hawa Lorenzo RN Attending Clinician MARGUERITE INTERIANO Attending Clinician Unavailable Marguerite Interiano MD Attending Clinician Triny Lang Attending Clinician Vtc-Lab Attending Clinician Unavailable Leilani Oliva LVN Attending Clinician Della Kaye MD Attending Clinician Reina Garcia MD Attending Clinician DELLA KAYE Attending Clinician Unavailable Cheikh Miguel MD Attending Clinician Dank Corrigan MD Attending Clinician Reina Garcia MD Admitting Clinician Payers Payer Name Policy Type Policy Number Effective Date Expiration Date S ource [facility] [id number] Problems Condition Condition Condition Status Onset Resolution Last Treating Co mments Source Name Details Category Date Date Treatment Clinician Date Morbid Morbid Disease Active Univers obesity obesity 9-28 [place] of [place] mass index 00 [place] dical of of Branch 40.0-49.9 40.0-49.9 Sepsis Sepsis Disease Active Univers 08-15 ity of 00:00: [place] 00 Medical Branch Hypotensio Hypotensio Disease Active U nivers n n 08-15 ity of 00:00: [place] [facility] Allergies, Adverse Reactions, Alerts Allergy Allergy Status Severity Reaction(s) Onset Inactive Treating Comm ents Source Name Type Date Date Clinician Rodrick Calles Active Other - See 2014-11 'liver U nivers n ty to comments 11-23 swelling" ity o f adverse 00:00: [place] reaction 00 Medical s [place] [facility] DRUG Active Other-Cmnt 2014-11 Univ ers N INGREDI 11-23 ity of 00:00: [place] 00 Medical [place] Social History Social Habit Start Date Stop Date Quantity Comments Source Exposure to Not sure [facility] SARS-CoV-2 (event) [facility] History of tobacco Current smoker Un iversity of use [facility] Sexual orientation Univer sity [facility] History of Social 2021-08-31 2021-08-31 Univers ity of function 00:00:00 00:00:00 [facility] Tobacco use and 2021-08-15 2021-08-15 Smokeless Universit y of exposure 00:00:00 00:00:00 tobacco non-user [facility] Branch Education 2021-08-15 2021-08-15 13 University 00:00:00 00:00:00 [facility] Sex Assigned At [birth year] Universit y of 00:00:00 00:00:00 [facility] Smoking Status Start Date Stop Date Source Ex-smoker 2021-08-15 00:00:00 2021-08-15 00:00:00 Universi ty [facility] Medications Ordered Filled Start Stop Current Ordering Indication Dosage Frequency Signature Comments Components Source Medication Medication Date Date Medication? Clinician (SIG) Name Name GABAPENTIN 2020-11 Yes [id number] TAKE 2 U nivers 100 mg 1-08 CAPSULES ity of capsule 00:00: BY MOUTH TWICE Medical DAILY Branch GABAPENTIN 2020-11 Yes [id number] TAKE 2 U nivers 100 mg 1-08 CAPSULES ity of capsule 00:00: BY MOUTH [place] 00 TWICE Medical DAILY Branch gabapentin 2020-2020- No [id number] 200mg Take 2 Univers 100 mg 0-11 11-08 capsules ity of capsule 00:00: 00:00 by mouth 2 Lucian as 00 :00 (two) Medical times Branch daily. aspirin 81 2020-11 Yes [id number] 81mg Take 1 U nivers mg chewable 0-08 tablet by ity of tablet 00:00: mouth [place] 00 daily. Medical Branch aspirin 81 2020-11 Yes [id number] 81mg Take 1 U nivers mg chewable 0-08 tablet by ity of tablet 00:00: mouth [place] 00 daily. Medical Branch aspirin 81 2020-11 Yes [id number] 81mg Take 1 U nivers mg chewable 0-08 tablet by ity of tablet 00:00: mouth [place] 00 daily. Medical Branch atorvastati 2020-11 Yes [id number] 20mg Take 1 Univers n 20 mg 0-07 tablet by ity of tablet 00:00: mouth at [place] 00 bedtime. Medical Branch insulin 2020-11 Yes [id number] Inject 3 Un raul regular 0-07 units SQ ity of human 100 00:00: daily with [place] unit/mL 00 lunch Medical injection Branch lancets 2020-11 Yes [id number] Use as U nivers gauge Misc 0-07 directed ity o f 00:00: [place] 00 Medical Branch blood sugar 2020-11 Yes [id number] Use as Univers diagnostic 0-07 directed ity o f strip 00:00: [place] 00 Medical Branch Insulin 2020-11 Yes [id number] Use as Univ ers [place], 0-07 directed ity of Disposable, 00:00: [place] 32 gauge x 00 Medical 5/16" Ndle Branch atorvastati 2020-11 Yes [id number] 20mg Take 1 Univers n 20 mg 0-07 tablet by ity of tablet 00:00: mouth at [place] 00 bedtime. Medical Branch insulin 2020-11 Yes [id number] Inject 3 Un raul regular 0-07 units SQ ity of human 100 00:00: daily with [place] unit/mL 00 lunch Medical injection Branch lancets 2020-11 Yes [id number] Use as U nivers gauge Misc 0-07 directed ity o f 00:00: [place] 00 Medical Branch blood sugar 2020-11 Yes [id number] Use as Univers diagnostic 0-07 directed ity o f strip 00:00: [place] 00 Medical Branch Insulin 2020-11 Yes [id number] Use as Univ ers [place], 0-07 directed ity of Disposable, 00:00: [place] 32 gauge x 00 Medical 5/16" Ndle Branch atorvastati 2020-11 Yes [id number] 20mg Take 1 Univers n 20 mg 0-07 tablet by ity of tablet 00:00: mouth at [place] 00 bedtime. Medical Branch insulin 2020-11 Yes [id number] Inject 3 Un raul regular 0-07 units SQ ity of human 100 00:00: daily with [place] unit/mL 00 lunch Medical injection Branch lancets 21 2020-11 Yes [id number] Use as U nivers gauge Misc 0-07 directed ity o f 00:00: [place] 00 Medical Branch blood sugar 2020-11 Yes [id number] Use as Univers diagnostic 0-07 directed ity o f strip 00:00: [place] 00 [facility] Branch Insulin 2020-11 Yes [id number] Use as Univ ers [place], 0-07 directed ity of Disposable, 00:00: [place] 32 gauge x 00 Medical 5/16" Ndle Branch insulin NPH 2020-11- No [id number] 14U inject 14 Univers and regular 0-07 11-07 Units ity of human 70-30 00:00: 04:59 under the [place] 100 unit/mL 00 :00 skin 2 Medica l (70-30) (two) Branch injection times daily before breakfast and dinner for 30 days. Immunizations Ordered Immunization Filled Date Status Comments Sour ce Name Immunization Name Pneumococcal 2014-05-20 Completed University o f Polysaccharide, 00:00:00 [place] Med ical PPSV23 (PNEUMOVAX) Branch Pneumococcal 2014-05-20 Completed University o f Polysaccharide, 00:00:00 [place] Med ical PPSV23 (PNEUMOVAX) Branch Meningococcal 2013-02-19 Completed University of Polysaccharide 00:00:00 [place] Medi ket[place]ah (groups A, C, Y and Branc h W-135) conjugate vaccine (MCV4P) TDAP 2013-02-19 Completed University of 00:00:00 [facility] Meningococcal 2013-02-19 Completed University of Polysaccharide 00:00:00 [place] Medi [place]ah (groups A, C, Y and Branc h W-135) conjugate vaccine (MCV4P) TDAP 2013-02-19 Completed University 00:00:00 [facility] Meningococcal Unknown Completed [facility] (groups A, C, Y and Branc h W-135) conjugate vaccine (MCV4P) Pneumococcal Unknown Completed [place] o f [facility] ica PPSV23 (PNEUMOVAX) Branch TDAP Unknown Completed [facility] Vital Signs Vital Name Observation Time Observation Value Comments Source Systolic blood 2021-08-28 20:36:00 139 mm[Hg] Univer sity of pressure [facility] Diastolic blood 2021-08-28 20:36:00 93 [facility]Hg[facility] 2021-08-28 20:36:00 90 /min [facility] Body height 2021-08-28 20:33:00 182.9 cm [facility] Body weight 2021-08-28 20:33:00 159.031 kg [facility] BMI 2021-08-28 20:33:00 47.55 kg/m2 [facility] Oxygen saturation in 2021-08-28 20:33:00 99 /min [facility] Arterial blood by [facility] Pulse oximetry [place] Body temperature 2021-08-28 20:33:00 36.33 Hailey [facility] Procedures Procedure Date / Time Performed Performing Clinician [facility] e REFERRAL- 2023-04-29 05:01:00 Doctor Unassigned, No [facility] REQUEST/RESPONSE Name [facility] URINALYSIS 2021-08-28 21:53:00 [facility] PROTEIN CREAT RATIO 2021-08-28 21:53:00 Marguerite Interiano [facility] URINE RANDOM [facility] PHOSPHORUS 2021-08-28 21:50:00 [facility] URIC ACID 2021-08-28 21:50:00 Marguerite Interiano [facility] MAGNESIUM 2021-08-28 21:50:00 [facility] COMP. METABOLIC PANEL 2021-08-28 21:50:00 Marguerite Interiano [facility] ([id number]) [facility] CBC WITH DIFF 2021-08-28 21:50:00 Marguerite Interiano [facility] Encounters Start End Encounter Admission Attending Care Care Encounter Source Date/Time Date/Time Type Type Clinicians Facility Department ID 2023-05-15 2023-05-15 Outpatient R [facility] [id number] Univers 16:00:00 16:00:00 REBEKAH CHAVARRIANCYobany [facility] 2023-05-08 2023-05-08 Patient Doctor MARGUERITE [id number] Univers 00:00:00 00:00:00 Secure Msg Unassigned, [place] [id number] ity of [place] [facility] [id number] [place] [id number] [facility] 019 Branch 2023-05-01 2023-05-01 Outpatient R [facility] [id number] Univers 13:00:00 13:00:00 REBEKAH CHAVARRIANCYobany [facility] 2023-04-29 2023-04-29 Orders Doctor MARGUERITE 1.2.840.114 [id number] Univers 00:00:00 00:00:00 Only Unassigned, [place] [id number] ity of [place] [facility] [id number] [place] [id number] [facility] 009 Branch 2023-04-27 2023-04-27 Outpatient [facility] [id number] [place] 13:45:41 13:45:41 0610 [place] 2023-03-22 2023-03-22 Outpatient [facility] [id number] [place] 14:03:03 14:03:03 0505 F [place] 2021-09-27 2021-09-27 Patient Hawa Lorenzo [id number] Univers 00:00:00 00:00:00 Outreach E ARSHAD [id number] i [place]2.[place] [id number] [facility] 403 Branch 2021-09-25 2021-09-25 Outpatient Muna INTERIANO [facility] [id number] Univers 15:30:00 15:30:00 , MARGUERITE patel of [facility] 2021-09-24 2021-09-24 Refill [facility] 1.2.840.114 [id number] Univers 00:00:00 00:00:00 , Marguerite JOHNSTONPEC [id number] ity [place]2.[place]2.686 [place] C[place] [id number] [address] [facility] 2021-09-21 2021-09-21 Patient Hawa Lorenzo 1.2.840.114 [id number] Univers 00:00:00 00:00:00 Outreach E ARSH[place] [id number] [place] [id number] [address] 2021-09-08 2021-09-08 Telephone [facility] 1.2.840.114 [id number] Univers 00:00:00 00:00:00 , Marguerite JOHNSTONPEC [id number] [place]2.[place] [id number] [address] [facility] 2021-09-04 2021-09-04 Patient Hawa Lorenzo 1.2.840.114 [id number] Univers 00:00:00 00:00:00 Outreach E Arshad [id number] i ty [place] 4.2.7.2.[place] [id number] [address] 2021-09-01 2021-09-01 Patient Chace Lang 1.2.840.114 [id number] Univers 00:00:00 00:00:00 Outreach Triny E Arshad [id number] i ty [place] 4[place].7.2.[place] [id number] [address] 2021-08-31 2021-08-31 Patient Hawa Lorenzo 1.2.840.114 [id number] Univers 09:10:53 11:10:53 Outreach E Arshad [id number] i ty [place] 4[place]2.7.2.[place] [id number] [address] 2021-08-282021-08-28 Licensed Physical Therapist Vtc-Lab [facility] [[email or web address]] 1.2.840.114 [id number] Univers 16:41:20 16:56:20 Visit Marguerite Interiano 350.1.13.1 0 it[place]2.7.2.[place] [id number] [facility] [address] [place] [facility] 2021-08-28 2021-08-28 Office [facility] 1.2.840.114 [id number] Univers 15:03:38 15:33:38 Visit , Marguerite CREWS [id number] it[place]2.[place]2.[place] [id number] [facility] [address] [place] [facility] 2021-08-28 2021-08-28 Outpatient R LAISHA [facility] [id number] Univers 15:30:00 15:30:00 , MARGUERITE patel [facility] 2021-08-28 2021-08-28 Patient Hawa Lorenzo 1.2.840.114 [id number] Univers 00:00:00 00:00:00 Outreach E Vinnie [id number] i ty of [place] 4[place]2.7.2.[place] [id number] [facility] 403 Branch 2021-08-25 2021-08-25 Transition Chace Oliva 1.2.840.114 [id number] Univers 00:00:00 00:00:00 of Care Leilani Winy [id number] ity of [place] 4[place]2.7.2.[place] [id number] [facility] 403 Branch 2021-08-15 2021-08-24 Hospital Della Kaye [facility] [[email or web address]] 1.2.840.1 [id number] Univers 09:58:00 17:20:00 Encounter Reina Garcia [facility] [id number] ity of [place]2.[address] [place] [facility] [id number] [address] ([facility]) 2021-08-17 2021-08-17 Patient Hawa Lorenzo Chace 1.2.840.114 [id number] Univers 00:00:00 00:00:00 Outreach E Arshad [id number] i ty of [place] 4.2.7.2.686 [facility] [id number] [facility] 403 Branch 2021-08-15 2021-08-15 Emergency [facility] [id number] Univers 09:58:00 09:58:00 DELLA ity [facility] 2019-12-29 2019-12-29 Emergency [facility] [id number] Univers 01:24:33 02:37:00 Cheikh Arriaga 350.1.13.10 ity of [place] 4.2.7.2.686 [facility] [id number] [place] [address] Branch 2019-07-30 2019-07-30 Emergency [facility] [id number] Univers 08:38:41 09:38:00 Dank Arriaga 350.1.13.10 i ty of [place] 4.2.7.2.686 [facility] [phone] [place] [address] Branch Results This patient has no known results.
[2023-08-26] MEDS ORDERED: TDAP (DIPHTH,PERTUSS(ACELL),TET VAC) 0.5 ML VIAL IMVAC ONE (08:38)
--- NOTE | 2023-08-26 08:51 | RAD REPORT ---
EXAM DESCRIPTION: RAD - Foot Right 3 View - 08/26/2023 8:30 am CLINICAL HISTORY: SMASH INJURY COMPARISON: No comparisons FINDINGS: Fracture is present involving the base of the distal phalanx of the great toe with surroun ding soft tissue swelling. Fracture appears to extend into the interphalangeal joint.
--- NOTE | 2023-08-26 09:01 | EDPHYS ---
Physician Documentation [facility] Name: Tyler Latif Age: 32 yrs Sex: Male : 1990 Arrival Date: 08/26/2023 Time: 07:42 Bed 5 Private MD: ED Physician Jesus Alberto Johnson HPI: 08/26 08:05 This 32 yrs old Black Male presents to ER via Ambulatory with complaints of Laceration jh7 To Foot - Toe. 08:05 The patient has a laceration related to: doing yard work, patio door, occurred at home, jh7 The injury was accidental. The laceration(s) is(are) located on the right great toe. Onset: The symptoms/episode began/occurred 12 hour(s) ago. Associated signs and symptoms: Pertinent negatives: deformity, dizziness, heavy bleeding, loss of consciousness, numbness distal to injury, suspected foreign body. 32-year-old male reports that while he was outside at his home his patio door, which weighed 50 pounds, fell on his right great toe at 8 PM last night. Complains of pain, swelling, and bleeding. History of diabetes and hypertension.. Historical: - Allergies: 08:15 No Known Allergies; iw - PMHx: 08:05 Diabetes - NIDDM; Hypertension; iw - Immunization history:: Adult Immunizations unknown. - Social history:: Smoking status: Patient denies any tobacco usage or history of. ROS: 08:05 Constitutional: Negative for fever, chills, and weight loss, Eyes: Negative for injury, jh7 pain, redness, and discharge, Neck: Negative for injury, pain, and swelling, Cardiovascular: Negative for chest pain, palpitations, and edema, Respiratory: Negative for shortness of breath, cough, wheezing, and pleuritic chest pain, Abdomen/GI: Negative for abdominal pain, nausea, vomiting, diarrhea, and constipation, Back: Negative for injury and pain, 08:05 Neuro: Negative for headache, weakness, numbness, tingling, and seizure, 08:05 MS/extremity: Positive for injury or acute deformity, laceration, pain, swelling, tenderness, of the right great toe, 08:05 Skin: Positive for laceration(s), 08:05 All other systems are negative, Exam: 08:05 Constitutional: This is a well developed, well nourished patient who is awake, alert, jh7 and in no acute distress. Head/Face: Normocephalic, atraumatic. Neck: Trachea midline, no thyromegaly or masses palpated, and no cervical lymphadenopathy. Supple, full range of motion without nuchal rigidity, or vertebral point tenderness. No Meningismus. Cardiovascular: Regular rate and rhythm with a normal S1 and S2. No gallops, murmurs, or rubs. Normal PMI, no JVD. No pulse deficits. Respiratory: Lungs have equal breath sounds bilaterally, clear to auscultation and percussion. No rales, rhonchi or wheezes noted. No increased work of breathing, no retractions or nasal flaring. Back: No spinal tenderness. No costovertebral tenderness. Full range of motion. Neuro: Awake and alert, GCS 15, oriented to person, place, time, and situation. Sensory grossly intact. Normal gait. 08:05 Musculoskeletal/extremity: ROM: limited active range of motion due to pain, in the Right great toe, Pulses: are normal with no appreciated deficits, Perfusion: the extremity is normally perfused throughout, pink, warm, with brisk capillary refill, Sensation intact. 08:05 Skin: injury, laceration(s), the wound is approximately 1 cm(s), of the right great toe, Superficial avulsion laceration of the dorsal right great toe proximal to the nailbed. There is mild bleeding under the nail bed and the nail appears slightly discolored with the nail shifted laterally. Toenail still appears to be intact., Vital Signs: 08:03 BP 153 / 110; Pulse 93; Resp 16; Temp 97.7; Pulse Ox 97% on R/A; iw 08:24 BP 167 / 103; Pulse 91; Resp 16; Pulse Ox 98% ; ko1 09:29 BP 158 / 99; Pulse 88; Resp 16; Pulse Ox 98% ; ko1 MDM: 07:58 Patient medically screened. [facility] 09:03 Differential diagnosis: superficial laceration, Fracture, contusion, sprain. Data [facility] reviewed: vital signs, nurses notes, radiologic studies, plain films. I considered the following discharge prescriptions or medication management in the emergency department Medications were administered in the Emergency Department. See MAR. Care significantly affected by the following chronic conditions: Diabetes, Hypertension. Counseling: I had a detailed discussion with the patient and/or guardian regarding the historical points, exam findings, and any diagnostic results supporting the discharge/admit diagnosis, the need for outpatient follow up, a orthopedic surgeon, to return to the emergency department if symptoms worsen or persist or if there are any questions or concerns that arise at home. Special discussion: Based on the history and exam findings, there is no indication for further emergent testing or inpatient evaluation. I discussed with the patient/guardian the need to see the orthopedic surgeon for further evaluation of the symptoms. Affected toe was aaron taped and the patient was placed in a Ortho shoe. Advised the patient to follow-up with an orthopedist in 1 week due to the fracture being intra-articular.. 08/26 08:03 Order name: XRAY Foot RIGHT 3 View; Complete Time: 08:53 jh7 08/26 08:03 Order name: Wound dressing; Complete Time: 08:30 jh7 08/26 08:57 Order name: Ortho shoe; Complete Time: 09:10 jh7 Administered Medications: 08:30 Drug: Tetanus-Diphtheria Toxoid IM Adult 0.5 ml IM once; Provide Vaccine Information kc6 Statement (VIS). {Gate Mortiser Operator: Muse; Exp: SatApr 10 2024; Lot #: [id number]; Series: 1 of 1; Patient Consent: Obtained; Date/Time: ; Source Name: Tyler Latif; Source Relationship: Self; Address Information: [address] [place] [address]; ; Education: Provided; VIS Presented Date: ; VIS Publication: Tetanus/Diphtheria (Td) Vaccine VIS 02/26/2017 (historic); Vaccine Funding Eligibility: [facility] eligibility not determined/unknown} Route: IM; Site: right deltoid; 08:41 Follow up: Response: No adverse reaction kc6 Disposition: 10:50 Co-signature as Attending Physician, Jesus Alberto Johnson MD I reviewed the patient's care rn provided by the Advanced Practice Provider and agree with the diagnosis and treatment plan. Disposition Summary: 08/26/23 09:00 Discharge Ordered Notes: Location: Home [facility] Problem: new 7 Symptoms: are unchanged jh7 Condition: Stable jh7 Diagnosis - Fracture of right distal phalanx of the great toe jh7 Followup: [facility] - With: Franco Lane MD - When: 1 week - Reason: Recheck today's complaints Discharge Instructions: - Discharge Summary Sheet [facility] - Toe Fracture [facility] Forms: - Medication Reconciliation Form [facility] - Thank You Letter [facility] - Antibiotic Education [facility] - Patient Portal Instructions [facility] - Leadership Thank You Letter [facility] - Work release form ko1 Prescriptions: - Cephalexin 500 mg Oral capsule - take 1 capsule ORAL route every 12 hours for 7 days; 14 capsule; Refills: 0, jh7 Product Selection Permitted Signatures: Dispatcher [employer] Paloma Waggoner, RN RN iw Jesus Alberto Johnson MD MD rn Hadash, Jennifer, CRM ARCHITECT CRM ARCHITECT [facility] Julee Nair RN RN kc6 Sandra Kaplan RN RN ko1
--- NOTE | 2023-08-26 09:01 | ER ---
Nurse's Notes [facility] Name: Tylre Latif Age: 32 yrs Sex: Male : 1990 Arrival Date: 08/26/2023 Time: 07:42 Bed 5 Private MD: Diagnosis: Fracture of right distal phalanx of the great toe Presentation: 08/26 08:03 Chief complaint: Patient states: sliding door came off track last night, fell on his iw big toe , laceration to toe. Coronavirus screen: At this time, the client does not indicate any symptoms associated with coronavirus-19. Ebola Screen: Patient negative for fever greater than or equal to 101.5 degrees Fahrenheit, and additional compatible Ebola Virus Disease symptoms Patient denies exposure to infectious person. Patient denies travel to an Ebola-affected area in the 21 days before illness onset. No symptoms or risks identified at this time. Complicating Factors: There are no complicating factors for this patient. Initial Sepsis Screen: Does the patient meet any 2 criteria? No. Patient's initial sepsis screen is negative. Does the patient have a suspected source of infection? No. Patient's initial sepsis screen is negative. Risk Assessment: Do you want to hurt yourself or someone else? Patient reports no desire to harm self or others. Onset of symptoms was August 25, 2023. 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 - Social history:: Smoking status: Patient denies any tobacco usage or history of. Screenin:20 [facility] ED Fall Risk Assessment (Adult) History of falling in the last 3 months, ko1 including since admission No falls in past 3 months (0 pts) Confusion or Disorientation No (0 pts) Intoxicated or Sedated No (0 pts) Impaired Gait No (0 pts) Mobility Assist Device Used No (0 pt) Altered Elimination No (0 pt) Score/Fall Risk Level 0 - 2 = Low Risk Oriented to surroundings, Maintained a safe environment, Educated pt \T\ family on fall prevention, incl call for assistance when getting out of bed, Assessed \T\ reinforced patient's understanding of fall precautions, Provided non-skid footwear, Hourly rounding (assess needs \T\ fall precautionary measures) done, Used ambulatory aids as needed (educated on \T\ assisted with), Used gait belt as appropriate. Abuse screen: Denies threats or abuse. Denies injuries from another. Nutritional screening: No deficits noted. Tuberculosis screening: No symptoms or risk factors identified. Assessment: 08:20 General: Appears in no apparent distress. uncomfortable, Behavior is calm, cooperative, ko1 appropriate for age. Pain: Complains of pain in right great toe. Neuro: No deficits noted. Cardiovascular: No deficits noted. Respiratory: No deficits noted. GI: No deficits noted. : No deficits noted. EENT: No deficits noted. Derm: No deficits noted. Musculoskeletal: Reports pain in right great toe. Injury Description: Laceration is not bleeding, was sustained 12-24 hours ago. Vital Signs: 08:03 BP 153 / 110; Pulse 93; Resp 16; Temp 97.7; Pulse Ox 97% on R/A; iw 08:24 BP 167 / 103; Pulse 91; Resp 16; Pulse Ox 98% ; ko1 09:29 BP 158 / 99; Pulse 88; Resp 16; Pulse Ox 98% ; ko1 ED Course: 07:46 Patient arrived in ED. mg5 07:57 Sandra Kaplan, SANJAY is Primary Nurse. ko1 07:58 Sonja Haque FNP is PHCP. jh7 07:58 Jesus Alberto Johnson MD is Attending Physician. jh7 08:05 Triage completed. iw 08:15 Arm band placed on. iw 08:20 Patient has correct armband on for positive identification. Bed in low position. Call ko1 light in reach. Provided Education on: na. Pulse ox on. NIBP on. Door closed. Noise minimized. Lights dimmed. Warm blanket given. 08:26 X-ray completed. Portable x-ray completed in exam room. Patient tolerated procedure mh1 well. 08:30 XRAY Foot RIGHT 3 View In Process Unspecified. EDMS 08:[address] MD is Referral Physician. Jose 09:29 No provider procedures requiring assistance completed. Patient did not have IV access ko1 during this emergency room visit. Wound care: to laceration located on right great toe was cleaned with Hibiclens, dressed with Neosporin, 4X4s, Kerlix, Patient tolerated well. 09:30 Ortho shoe applied to right foot. ko1 Administered Medications: 08:30 Drug: Tetanus-Diphtheria Toxoid IM Adult 0.5 ml IM once; Provide Vaccine Information kc6 Statement (VIS). 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 Questions and/or concerns ko1 addressed. VIS edition date: August 26, 2023. Outcome: 09:00 Discharge ordered by . jim 09:30 Discharged to home ambulatory, ko1 09:30 Condition: stable 09:30 Discharge instructions given to patient, Instructed on discharge instructions, follow up and referral plans. medication usage, Demonstrated understanding of instructions, follow-up care, medications, wound care, Prescriptions given X 1, 09:31 Patient left the ED. ko1 Signatures: Dispatcher [employer] Lesley Limon 1 Paloma Marin, RN RN iw Sonja Haque, PIPE JOINTS SUPERVISOR PIPE JOINTS SUPERVISOR jh7 Julee Nair RN RN kc6 Sandra Kaplan RN RN ko1 Elena Minaya 5
[2023-08-26 09:36] VITALS: TEMP 97.7
[2023-08-26 09:37] VITALS: O2SAT 98
[2023-08-26 09:38] VITALS: BP 158/99
== END 2023-08-26 09:31 | disposition home or self-care (01) ==
LOC: ER 07:42
DX: S92.421A Displaced fracture of distal phalanx of right great toe, initial encounter for closed fracture (principal); Z23 Encounter for immunization
CPT/HCPCS: 90471; 99284

== ENCOUNTER 2025-01-03 22:03 | Emergency (ER) | payer OTHER ==
--- OUTSIDE RECORDS SUMMARY | 2025-01-03 22:06 | XMS REPORT | Continuity of Care Document ---
Author Name Unknown Address [address] [facility] [address] [place] [address] [facility] thconnect Address [address] [facility] [address] [place] [address] Care Team Providers Care Mid Level Provider Name Role Phone Awan [facility] Primary Care Physician [phone] ENRICO MARTÍNEZ Attending Clinician Unavailable CARLEEN CHAVARRIA Attending Clinician UnavailCARLEEN Everett Attending Clinician Unavaila luis f Doctor Unassigned, [place] Attending Clinician U mikel Lorenzo RN, Hawa Zamarripa Attending Clinician [phone] MARGUERITE INTERIANO Attending Clinician UnavailMarguerite Shah MD Attending Clinician Triny Lang Attending Clinician [phone] [facility] Attending Clinician Unavailable Leilani Oliva LVN Attending Clinician [phone] Della Kaye MD Attending Clinician [phone] Reina Garcia MD Attending Clinician DELLA KAYE Attending Clinician Unavailable Cheikh Miguel MD Attending Clinician Meenu MILLER, Dank Hendricks Attending Clinician Baba MILLER, Reina Daniel Admitting Clinician Payers Payer Name Policy Type Policy Number Effective Date Expirati on Date Source [facility] DEMETRIA MELENDREZ COPAY FOCUS 9 [id number] 2023 00:00:00 [facility] [id number] Problems Condition Name Condition Details Condition Category Status Onset Date Resolution Date Last Treatment Date Treating Clinician Comments Source Morbid obesity with body mass index of 40.0-49.9 Morbid obesity with body mass index of 40.0-49.9 Disease Active 08-15 00:00: 00 [facility] Sepsis Sepsis Disease Active 08-15 00:00: 00 [facility] Hypotensio n Hypotensio n Disease Active 08-15 00:00: 00 [facility] Allergies, Adverse Reactions, Alerts Allergy Name Allergy Type Status Severity Reaction(s) Onset Date Inactive Date Treating Clinician Comments Source metformi n Propensi ty to adverse reaction to drug Active 11-27 00:00: 00 Guanakoyumiko Cisneros Metformi n and Related - CLASS Propensi ty to adverse reaction to drug Active - 00:00: 00 Guanako Cisneros Metformi n Propensi ty to adverse reaction s Active Other - See comments 2014-11 00:00: 00 'liver swelling" [facility] METFORMI N DRUG INGREDI Active Other-Cmnt 2014-11 00:00: 00 [facility] Social History Social Habit Start Date Stop Date Quantity Comments Source Exposure to SARS-CoV-2 (event) Not sure [facility] History of tobacco use Current smoker [facility] Sexual orientation [facility] History of Social function 2021-08-31 00:00:00 2021-08-31 00:00:00 [facility] Tobacco use and exposure 2021-08-15 00:00:00 2021-08-15 00:00:00 Smokeless tobacco non-user [facility] Education 2021-08-15 00:00:00 2021-08-15 00:00:[address] [facility] Sex Assigned At 1990 00:00:00 1990 00:00:00 [facility] Smoking Status Start Date Stop Date Source Ex-smoker 2021-08-15 00:00:00 2021-08-15 [facility] Ordered Medication Name Filled Medication Name Start Date Stop Date Current Medication? Ordering Clinician Indication Dosage Frequency Signature (SIG) Comments Components Source lisinopril 20 mg tablet 12-25 00:00: 00 Yes 1mg Guanako Cisneros Glucose Gel 40 % oral gel 12-11 00:00: 00 Yes 15% Guanako Cisneros glipizide ER 2.5 mg tablet, extended release 24 hr 12-11 00:00: 00 Yes 1mg Guanako Cisneros lisinopril 20 mg tablet 11-27 00:00: 00 Yes 1mg Guanako Cisneros glipizide 5 mg tablet 11-27 00:00: 00 Yes 1mg Guanako Cisneros TAKE 1 TABLET BY MOUTH TWICE A DAY 2022-11 00:00: 00 02-16 00:00 :00 No 10 Guanako Cisneros TAKE 1 TABLET TWICE DAILY WITH FOOD. 2022-11 00:00: 00 02-16 00:00 :00 No [id number] Guanako Cisneros APPLY SPARINGLY TO AFFECTED AREA(S) TWICE DAILY 2022-11 00:00: 00 02-16 00:00 :00 No 2 Guanako Cisneros TAKE 1 TABLET TWICE DAILY. 2022-11 00:00: 00 02-16 00:00 :00 No 5 Guanako Cisneros TAKE 1 TABLET BY MOUTH TWICE DAILY . 06-12 00:00: 00 Yes Guanako Cisneros TAKE 1 TABLET BY MOUTH TWICE DAILY 06-12 00:00: 00 Yes Guanako Cisneros 2 po bid 04-27 00:00: 00 Yes 50 Guanako Cisneros TAKE 1 TABLET TWICE DAILY. 2023-0 6-10 00:00: 00 02-16 00:00 :00 No 5 Guanako Cisneros TAKE 1 TABLET TWICE DAILY. 6-10 00:00: 00 02-16 00:00 :00 No 100 Guanako Cisneros TAKE 1 TABLET BID 5-05 00:00: 00 02-16 00:00 :00 No 500 Guanako Cisneros TAKE 10 ML BY MOUTH EVERY 4 HOURS NEEDED FOR COUGH AND CONGESTION 2-09 00:00: 00 02-16 00:00 :00 No Guanako Cisneros TAKE 1 TABLET BY MOUTH EVERY 12 HOURS FOR 10 DAYS 2021-11 0-12 00:00: 00 02-16 00:00 :00 No Guanako Cisneros TAKE 1 TABLET BY MOUTH EVERY 6 HOURS FOR PAIN CONTROL FOR UP TO 5 DAYS. DO NOT EXCEED 8 TABLETS PER DAY 2021-11 0-12 00:00: 00 02-16 00:00 :00 No Guanako Cisnerso TAKE 1 TABLET BY MOUTH EVERY 12 HOURS 2021-11 012 00:00: 00 02-16 00:00 :00 No Guanako Cisneros GABAPENTIN 100 mg capsule 2020-11 00:00: 00 Yes [id number] TAKE 2 CAPSULES BY MOUTH TWICE DAILY [facility] amlodipine 10 mg tablet 2020-11 0-19 00:00: 00 Yes 1mg Guanako Cisneros gabapentin 100 mg capsule 2020-11 0- 00:00: 00 09-25 00:00 :00 No [id number] 200mg Take 2 capsules by mouth 2 (two) times daily. [facility] aspirin 81 mg chewable tablet 2020-11 00:00: 00 Yes [id number] 81mg Take 1 tablet by mouth daily. [facility] atorvastati n 20 mg tablet 2020-11 00:00: 00 Yes [id number] 20mg Take 1 tablet by mouth at bedtime. [facility] insulin regular human 100 unit/mL injection 2020-11 0- 00:00: 00 Yes [id number] Inject 3 units SQ daily with lunch [facility] lancets 21 gauge Misc 2020-11 00:00: 00 Yes [id number] Use as directed [facility] blood sugar diagnostic strip 2020-11 0 00:00: 00 Yes [id number] Use as directed [facility] Insulin [place], Disposable, 32 gauge x 5/16" Ndle 2020-11 0 00:00: 00 Yes [id number] Use as directed [facility] blood sugar diagnostic strip 2020-11 0 00:00: 00 Yes [id number] Use as directed [facility] Insulin [place], Disposable, 32 gauge x 5/16" Ndle 2020-11 0 00:00: 00 Yes [id number] Use as directed [facility] insulin NPH and regular human 70-30 100 unit/mL (70-30) injection 2020-11 0 00:00: 00 09-24 04:59 :00 No [id number] 14U inject 14 Units under the skin 2 (two) times daily before breakfast and dinner for 30 days. [facility] glipizide 5 mg tablet 2019-0 8-05 00:00: 00 Yes 1mg Guanako Cisneros amlodipine 5 mg tablet 2019-0 8-05 00:00: 00 Yes 1mg Guanako Cisneros amlodipine 5 mg tablet 2019-0 5-05 00:00: 00 Yes 1mg Guanako Cisneros cyclobenzap rine 10 mg tablet 0 5-05 00:00: 00 Yes 1mg Guanako Cisneros indomethaci n 50 mg capsule 0 5-05 00:00: 00 Yes 1mg Guanako Cisneros Immunizations Ordered Immunization Name Filled Immunization Name Date Status Comments Source Pneumococcal Polysaccharide, PPSV23 (PNEUMOVAX) 2014-05-20 00:00:[address] [facility] Pneumococcal Polysaccharide, PPSV23 (PNEUMOVAX) 2014-05-20 00:00:[address] [facility] Meningococcal Polysaccharide (groups A, C, Y and W-135) conjugate vaccine (MCV4P) 2013-02-19 00:00:[address] [facility] TDAP 2013-02-19 00:00:[address] [facility] Meningococcal Polysaccharide (groups A, C, Y and W-135) conjugate vaccine (MCV4P) 2013-02-19 00:00:[address] [facility] TDAP 2013-02-19 00:00:[address] [facility] Meningococcal Polysaccharide (groups A, C, Y and W-135) conjugate vaccine (MCV4P) Unknown Completed [facility] Pneumococcal Polysaccharide, PPSV23 (PNEUMOVAX) Unknown Completed [facility] TDAP Unknown Completed [facility] Vital Signs Vital Name Observation Time Observation Value Comments S ource Systolic blood pressure 2021-08-28 20:36:00 139 mm[Hg] [facility] Diastolic blood pressure 2021-08-28 20:36:00 93 mm[Hg] [facility] Heart rate 2021-08-28 20:36:00 90 /min [facility] Body temperature 2021-08-28 20:33:[address] [facility] Body height 2021-08-28 20:33:00 182.9 cm [facility] Body weight 2021-08-28 20:33:00 159.031 kg [facility] BMI 2021-08-28 20:33:00 47.55 kg/m2 [facility] Oxygen saturation in Arterial blood by Pulse oximetry 2021-08-28 20:33:00 99 /min [facility] BP Systolic 2024-12-25 17:55:00 159 mm[Hg] Step hen F Blayne BP Diastolic 2024-12-25 17:55:00 114 mm[Hg] Matthew phen F Blayne Weight Measured 2024-12-25 17:55:00 353.60 pounds Guanako F Blayne Height Measured 2024-12-25 17:55:00 72.00 inches Guanako F Blayne Body Temperature 2024-12-25 17:55:00 98.20 degrees Guanako F Blayne Heart Rate 2024-12-25 17:55:00 110.00 /min Step hen F Blayne Respiratory Rate 2024-12-25 17:55:00 18.00 /min Guanako F Blayne Body Temperature 2024-12-11 11:30:00 98.60 degrees Guanako F Blayne Heart Rate 2024-12-11 11:30:00 87.00 /min Bina en F Blayne Respiratory Rate 2024-12-11 11:30:00 18.00 /min Guanako F Blayne BP Systolic 2024-12-11 11:30:00 161 mm[Hg] Step hen F Blayne BP Diastolic 2024-12-11 11:30:00 118 mm[Hg] Matthew phen F Blayne Weight Measured 2024-12-11 11:30:00 363.00 pounds Guanako F Blayne Height Measured 2024-12-11 11:30:00 72.00 inches Guanako F Blayne Heart Rate 2024-11-28 14:19:00 101.00 /min Step hen F Blayne Respiratory Rate 2024-11-28 14:19:00 Guanako F Blayne BP Systolic 2024-11-28 14:19:00 164 mm[Hg] Step hen F Blayne BP Diastolic 2024-11-28 14:19:00 113 mm[Hg] Matthew phen F Blayne Weight Measured 2024-11-28 14:19:00 358.20 pounds Guanako F Blayne Height Measured 2024-11-28 14:19:00 72.00 inches Guanako F Blayne Body Temperature 2024-11-28 14:19:00 97.60 degrees Guanako F Blayne BP Systolic 2024-11-27 14:35:00 181 mm[Hg] Step hen F Blayne BP Diastolic 2024-11-27 14:35:00 117 mm[Hg] Matthew phen F Blayne Weight Measured 2024-11-27 14:35:00 358.40 pounds Guanako F Blayne Height Measured 2024-11-27 14:35:00 72.00 inches Guanako F Blayne Body Temperature 2024-11-27 14:35:00 97.70 degrees Guanako F Blayne Heart Rate 2024-11-27 14:35:00 115.00 /min Step hen F Blayne Respiratory Rate 2024-11-27 14:35:00 Guanako F Blayne Height Measured 2024-10-21 23:23:00 Guanako F Blayne Body Temperature 2024-10-21 23:23:00 Guanako F Blayne Heart Rate 2024-10-21 23:23:00 Bina en F Blayne Respiratory Rate 2024-10-21 23:23:00 Guanako F Blayne BP Systolic 2024-10-21 23:23:00 Step hen F Blayne BP Diastolic 2024-10-21 23:23:00 Matthew phen F Blayne Weight Measured 2024-10-21 23:23:00 356.00 pounds Guanako F Blayne BP Systolic 2023-09-25 11:59:00 150 mm[Hg] Step hen F Blayne BP Diastolic 2023-09-25 11:59:00 104 mm[Hg] Matthew phen F Blayne Weight Measured 2023-09-25 11:59:00 382.20 pounds Guanako F Blayne Height Measured 2023-09-25 11:59:00 72.00 inches Guanako F Blayne Body Temperature 2023-09-25 11:59:00 98.20 degrees Guanako F Blayne Heart Rate 2023-09-25 11:59:00 108.00 /min Step hen F Blayne Respiratory Rate 2023-09-25 11:59:00 18.00 /min Guanako F Blayne BP Systolic 2023-04-27 13:57:00 146 mm[Hg] Step hen F Blayne BP Diastolic 2023-04-27 13:57:00 97 mm[Hg] Matthew phen F Blayne Weight Measured 2023-04-27 13:57:00 375.80 pounds Guanako F Blayne Height Measured 2023-04-27 13:57:00 72.00 inches Guanako F Blayne Body Temperature 2023-04-27 13:57:00 98.00 degrees Guanako F Blayne Heart Rate 2023-04-27 13:57:00 105.00 /min Step hen F Blayne Respiratory Rate 2023-04-27 13:57:00 18.00 /min Guanako F Blayne BP Systolic 2023-03-22 14:08:00 163 mm[Hg] Step hen F Blayne BP Diastolic 2023-03-22 14:08:00 102 mm[Hg] Matthew phen F Blayne Weight Measured 2023-03-22 14:08:00 378.80 pounds Guanako F Blayne Height Measured 2023-03-22 14:08:00 72.00 inches Guanako F Blayne Body Temperature 2023-03-22 14:08:00 98.30 degrees Guanako F Blayne Heart Rate 2023-03-22 14:08:00 105.00 /min Step hen F Blayne Respiratory Rate 2023-03-22 14:08:00 18.00 /min Guanako F Blayne BP Systolic 2021-09-05 16:54:00 148 mm[Hg] Step hen F Blayne BP Diastolic 2021-09-05 16:54:00 88 mm[Hg] Matthew phen F Blayne Weight Measured 2021-09-05 16:54:00 343.00 pounds Guanako Cisneros Height Measured 2021-09-05 16:54:00 72.00 inches Guanako F Blayne Body Temperature 2021-09-05 16:54:00 Guanako F Blayne Heart Rate 2021-09-05 16:54:00 Bina en F Blayne Respiratory Rate 2021-09-05 16:54:00 Guanako Marc Cisneros BP Systolic 2020-03-22 14:16:00 143 mm[Hg] Step hen F Blayne BP Diastolic 2020-03-22 14:16:00 107 mm[Hg] Matthew phen F Blayne Weight Measured 2020-03-22 14:16:00 389.00 pounds Guanako Cisneros Height Measured 2020-03-22 14:16:00 72.00 inches Guanako Cisneros Body Temperature 2020-03-22 14:16:00 97.60 degrees Guanako Cisneros Heart Rate 2020-03-22 14:16:00 105.00 /min Step hen F Blayne Respiratory Rate 2020-03-22 14:16:00 18.00 /min Guanako Marc Cisneros Procedures Procedure Date / Time Performed Performing Clinicia n Source REFERRAL- REQUEST/RESPONSE 2023-04-29 05:01:00 Doctor Unassigned, [place] [facility] URINALYSIS 2021-08-28 21:53:[address] [facility] PROTEIN CREAT RATIO URINE RANDOM 2021-08-28 21:53:[address] [facility] PHOSPHORUS 2021-08-28 21:50:[address] [facility] URIC ACID 2021-08-28 21:50:[address] [facility] MAGNESIUM 2021-08-28 21:50:[address] [facility] COMP. METABOLIC PANEL ([id number]) 2021-08-28 21:50:[address] [facility] CBC WITH DIFF 2021-08-28 21:50:00 Marguerite Interiano [facility] Encounters Start Date/Time End Date/Time Encounter Type Admission Type Attending [facility] Care Department Encounter ID Source 2024-12-25 17:48:08 2024-12-25 17:48:08 Outpatient SFA SFA [id number] Guanako Cisneros 2024-12-25 00:00:00 2024-12-25 00:00:00 Outpatient Visit SFA [id number] Guanako Cisneros 2024-12-11 11:24:40 2024-12-11 11:24:40 Outpatient SFA SFA [id number] Guanako Cisneros 2024-12-11 00:00:00 2024-12-11 00:00:00 Outpatient Visit SFA [id number] Guanako Cisneros 2024-12-04 14:43:59 2024-12-04 14:43:59 Outpatient SFA SFA [id number] Guanako Cisneros 2024-11-28 13:52:41 2024-11-28 13:52:41 Outpatient SFA SFA [id number] Guanako Cisneros 2024-11-27 00:00:00 2024-11-27 00:00:00 Outpatient Visit SFA [id number] Guanako Cisneros 2024-11-19 14:52:49 2024-11-19 14:52:49 Outpatient SFA SFA [id number] Guanako Cisneros 2024-10-21 14:11:10 2024-10-21 14:11:10 Outpatient SFA SFA [id number] Guanako Cisneros 2024-10-21 00:00:00 2024-10-21 00:00:00 Outpatient Visit SFA [id number] Guanako Cisneros 2024-08-21 00:00:00 2024-08-21 00:00:00 Outpatient ENRICO MARTÍNEZ [id number] [facility] 00:00:00 2024-06-25 00:00:00 Outpatient ENRICO MARTÍNEZ [facility] [id number] [facility] 2023-11-20 00:00:00 2023-11-20 00:00:00 Outpatient ENRICO MARTÍNEZ [id number] [facility] 2023-09-25 11:53:40 2023-09-25 11:53:40 Outpatient [facility] [id number] Guanakoyumiko Cisneros 2023-05-15 16:00:00 2023-05-15 16:00:00 Outpatient R CARLEEN CHAVARRIA STRAMSYobany [facility] [id number] [facility] 2023-05-08 00:00:00 2023-05-08 00:00:00 Patient Secure Msg Doctor Unassigned, [place] [facility] 1.2.840.114 350.1.13.10 4.2.7.2.686 [id number] [facility] 2023-05-01 13:00:00 2023-05-01 13:00:00 [facility] [id number] [facility] 2023-04-29 00:00:00 2023-04-29 00:00:00 Orders Only Doctor Unassigned, [place] [facility] 1.2.840.114 350.1.13.10 4.2.7.2.686 [id number] [facility] 2023-04-27 13:45:41 2023-04-27 13:45:41 Outpatient [facility] [id number] Guanako F Blayne 2023-03-22 14:03:03 2023-03-22 14:03:03 Outpatient [facility] [id number] Guanako F Blayne 2021-09-27 00:00:00 2021-09-27 00:00:00 Patient Outreach Hawa Lorenzo 1.2.840.114 350.1.13.10 4.2.7.2.686 [id number] [facility] 2021-09-25 15:30:00 2021-09-25 15:30:00 Outpatient R MARGUERITE INTERIANO [facility] [id number] [facility] 2021-09-24 00:00:00 2021-09-24 00:00:00 [facility] 1.2.840.114 350.1.13.10 4.2.7.2.686 [id number] [facility] 2021-09-21 00:00:00 2021-09-21 00:00:00 Patient Outreach BjHawa CHACE BOTELLO 1.2840.114 350.1.13.10 4.2.7.2.686 [id number] [facility] 2021-09-08 00:00:00 2021-09-08 00:00:[address] [facility] 1.2.840.114 350.1.13.10 4.2.7.2.686 [id number] [facility] 2021-09-04 00:00:00 2021-09-04 00:00:00 Patient Outreach BjHawa Chace Botello 1.2.840.114 350.1.13.10 4.2.7.2.686 [id number] [facility] 2021-09-01 00:00:00 2021-09-01 00:00:00 Patient Outreach Triny Lang Marilou Chace Botello 1.2.840.114 350.1.13.10 4.2.7.2.686 [id number] [facility] 2021-08-31 09:10:53 2021-08-31 11:10:53 Patient Outreach Hawa Lorenzo 1.2840.114 350.1.13.10 4.2.7.2.686 [id number] [facility] 2021-08-28 16:41:20 2021-08-28 16:56:20 Object Oriented Developer Visit [facility] Marguerite Interiano [facility] [place] [facility] 1.2840.114 350.1.13.10 4.2.7.2.686 [id number] [facility] 2021-08-28 15:03:38 2021-08-28 15:33:38 Office Visit Marguerite Interiano [facility] 1.20.114 350.1.13.10 4.2.7.2.686 [id number] [facility] 2021-08-28 15:30:00 2021-08-28 15:30:00 Outpatient [facility] [id number] [facility] 2021-08-28 00:00:00 2021-08-28 00:00:00 Patient Outreach Hawa Lorenzo 1.2840.114 350.1.13.10 4.2.7.2.686 [id number] [facility] 2021-08-25 00:00:00 2021-08-25 00:00:00 Transition of Care Leilani Oliva 1.2840.114 350.1.13.10 4.2.7.2.686 [id number] [facility] 2021-08-15 09:58:00 2021-08-24 17:20:00 Hospital Encounter Della Kaye Mohammad J [facility] 1.20.114 350.1.13.10 4.2.7.2.686 [id number] [facility] 2021-08-17 00:00:00 2021-08-17 00:00:00 Patient Outreach Hawa Lorenzo 1.2.840.114 350.1.13.10 4.2.7.2.686 [id number] [facility] 2021-08-15 09:58:00 2021-08-15 09:58:00 Emergency DELLA NAGEL [facility] ERT [id number] [facility] 2019-12-29 01:24:33 2019-12-29 02:37:00 Emergency Myriam Jaleelradames Antonia [facility] 1.2.840.114 350.1.13.10 4.2.7.2.686 [id number] [facility] 2019-07-30 08:38:41 2019-07-30 09:38:00 Emergency Dank Corrigan [facility] 1.2.840.114 350.1.13.10 4.2.7.2.686 [id number] [facility] Results Test Description Test Time Test Comments Results Result Co mments Source COMPREHENSIVE METABOLIC [id number] 03:55:07* Test Item Value Reference Range Interpretation Comme nts GLUCOSE (test code = 2217) 167 MG/DL 70-99 H BUN (test code = 2208) 5 MG/DL 6-20 L CREATININE (test code = 2214) 0.83 MG/DL 0.80-1.40 eGFR (2020 CKD-EPI) (test code = 02974) 118 ML/MIN/1.73 >60 CALC BUN/CREAT (test code = 2235) 6 RATIO 6-28 SODIUM (test code = 2231) 136 MEQ/L 133-146 POTASSIUM (test code = 2228) 4.1 MEQ/L 3.5-5.4 CHLORIDE (test code = 2215) 100 MEQ/L 95-107 CARBON DIOXIDE (test code = 2206) 20 MEQ/L 19-31 CALCIUM (test code = 2209) 10.1 MG/DL 8.5-10.5 PROTEIN, TOTAL (test code = 2228) 8.4 G/DL 6.1-8.3 H ALBUMIN (test code = 2200) 4.5 G/DL 3.5-5.2 CALC GLOBULIN (test code = 0) 3.9 G/DL 1.9-3.7 H CALC A/G RATIO (test code = 2233) 1.2 RATIO 1.0-2.6 BILIRUBIN, TOTAL (test code = 2206) 1.3 MG/DL <=1.2 H ALKALINE PHOSPHATASE (test code = 2203) 103 U/L 40-112 AST (test code = 2217) 23 U/L 9-50 ALT (test code = 2218) 27 U/L 5-50 HEMOGLOBIN [id number] 02:03:55* Test Item Value Reference Range Interpretation Comme nts HEMOGLOBIN A1c (test code = 31802) 8.0 % 4.2-5.6 H [employer] [place] GUIDELINES FOR HGB A1C: PREDIABETES/INCREASED RISK . . . . . . . 5.7-6.4% DIAGNOSIS OF DIABETES . . . . . . . . . >=6.5% WITH CONFIRMATION OR APPROPRIATE SYMPTOMS NOTE: ASSAY MAY BE AFFECTED BY HEMOGLOBINOPATHIES (SICKLE CELL ANEMIA, S-C DISEASE, OTHERS) OR ARTIFICIALLY LOWERED BY DECREASED RED CELL SURVIVAL (HEMOLYTIC ANEMIAS, BLOOD LOSS, ETC.). CONSIDER ALTERNATE TESTING OR LABORATORY CONSULTATION. COMPREHENSIVE METABOLIC [id number] 00:00:00* Test Item Value Reference Range Interpretation Comme nts GLUCOSE (test code = 2216) 167 MG/DL BUN (test code = 2207) 5 MG/DL CREATININE (test code = 2214) 0.83 MG/DL eGFR (2020 CKD-EPI) (test code = 96951) 118 ML/MIN/1.73 CALC BUN/CREAT (test code = 2234) 6 RATIO SODIUM (test code = 2230) 136 MEQ/L POTASSIUM (test code = 8) 4.1 MEQ/L CHLORIDE (test code = 2215) 100 MEQ/L CARBON DIOXIDE (test code = 2205) 20 MEQ/L CALCIUM (test code = 2208) 10.1 MG/DL PROTEIN, TOTAL (test code = 2228) 8.4 G/DL ALBUMIN (test code = 2201) 4.5 G/DL CALC GLOBULIN (test code = 2240) 3.9 G/DL CALC A/G RATIO (test code = 2234) 1.2 RATIO BILIRUBIN, TOTAL (test code = 2207) 1.3 MG/DL ALKALINE PHOSPHATASE (test code = 2204) 103 U/L AST (test code = 2218) 23 U/L ALT (test code = 2219) 27 U/L [place] CisnerosHEMOGLOBIN [id number] 00:00:00* Test Item Value Reference Range Interpretation Comme [facility] HEMOGLOBIN A1c (test code = 17854) 8.0 % [place] Tran AustinALBUMIN/CREATININE RATIO, RANDOM [id number] 00:00:00* Test Item Value Reference Range Interpretation Comme [facility] CREATININE, URINE, CONC. (te st code = 2072) 205.0 MG/DL ALBUMIN, URINE, RANDOM (test code = 28631) 298.9 MG/DL CALC ALBUMIN/CREAT, RND (rosetta t code = 54074) 1458 MG/G [place] CisnerosCOMPREHENSIVE METABOLIC [id number] 00:00:00* Test Item Value Reference Range Interpretation Comme [facility] GLUCOSE (test code = 2217) 167 MG/DL BUN (test code = 2208) 5 MG/DL CREATININE (test code = 2214) 0.83 MG/DL eGFR (2020 CKD-EPI) (test code = 23665) 118 ML/MIN/1.73 CALC BUN/CREAT (test code = 2235) 6 RATIO SODIUM (test code = 2231) 136 MEQ/L POTASSIUM (test code = 2228) 4.1 MEQ/L CHLORIDE (test code = 2215) 100 MEQ/L CARBON DIOXIDE (test code = 2206) 20 MEQ/L CALCIUM (test code = 2209) 10.1 MG/DL PROTEIN, TOTAL (test code = 2229) 8.4 G/DL ALBUMIN (test code = 2201) 4.5 G/DL CALC GLOBULIN (test code = 2240) 3.9 G/DL CALC A/G RATIO (test code = 2234) 1.2 RATIO BILIRUBIN, TOTAL (test code = 2207) 1.3 MG/DL ALKALINE PHOSPHATASE (test code = 2204) 103 U/L AST (test code = 2218) 23 U/L ALT (test code = 2219) 27 U/L [place] Tran AustinHEMOGLOBIN [id number] 00:00:00* Test Item Value Reference Range Interpretation Comme [facility] HEMOGLOBIN A1c (test code = 71921) 8.0 % [place] Tran AustinALBUMIN/CREATININE RATIO, RANDOM [id number] 00:00:00* Test Item Value Reference Range Interpretation Comme nts CREATININE, URINE, CONC. (te st code = 2072) 205.0 MG/DL ALBUMIN, URINE, RANDOM (test code = 29996) 298.9 MG/DL CALC ALBUMIN/CREAT, RND (rosetta t code = 79729) 1458 MG/G Guanako Tran AustinCOMPREHENSIVE METABOLIC [id number] 00:00:00* Test Item Value Reference Range Interpretation Comme nts GLUCOSE (test code = 2217) 167 MG/DL BUN (test code = 2208) 5 MG/DL CREATININE (test code = 2214) 0.83 MG/DL eGFR (2020 CKD-EPI) (test code = 73562) 118 ML/MIN/1.73 CALC BUN/CREAT (test code = 2235) 6 RATIO SODIUM (test code = 2231) 136 MEQ/L POTASSIUM (test code = 2228) 4.1 MEQ/L CHLORIDE (test code = 2215) 100 MEQ/L CARBON DIOXIDE (test code = 2206) 20 MEQ/L CALCIUM (test code = 2209) 10.1 MG/DL PROTEIN, TOTAL (test code = 2229) 8.4 G/DL ALBUMIN (test code = 2201) 4.5 G/DL CALC GLOBULIN (test code = 2240) 3.9 G/DL CALC A/G RATIO (test code = 2234) 1.2 RATIO BILIRUBIN, TOTAL (test code = 2207) 1.3 MG/DL ALKALINE PHOSPHATASE (test code = 2204) 103 U/L AST (test code = 2218) 23 U/L ALT (test code = 2219) 27 U/L Guanako Tran AustinHEMOGLOBIN [id number] 00:00:00* Test Item Value Reference Range Interpretation Comme charmaine HEMOGLOBIN A1c (test code = 98804) 8.0 % Guanako Tran AustinALBUMIN/CREATININE RATIO, RANDOM [id number] 00:00:00* Test Item Value Reference Range Interpretation Comme nts CREATININE, URINE, CONC. (te st code = 2072) 205.0 MG/DL ALBUMIN, URINE, RANDOM (test code = 85327) 298.9 MG/DL CALC ALBUMIN/CREAT, RND (rosetta t code = 83481) 1458 MG/G Guanako CisnerosLIPID [id number] 11:38:17* Test Item Value Reference Range Interpretation Comme nts CHOLESTEROL (test code = 2210) 131 MG/DL <200 TRIGLYCERIDES (test code = 2232) 157 MG/DL <150 H HDL CHOLESTEROL (test code = 2220) 29 MG/DL >39 L CALC LDL CHOL (test code = 2237) 77 MG/DL <100 NOTE: CALCULATED LDL IS BASED ON JOANN-ROJAS METHOD WHICHINCLUDES ADJUSTABLE TRIGLYCERIDE:VLDL CHOLESTEROL RATIO.THIS FACTOR VARIES BY MEASURED TRIGLYCERIDE AND NON-HDLCHOLESTEROL CONCENTRATIONS WITH INCREASED CALCULATED LDL SEENIN HIGHER TRIGLYCERIDE OR LOWER NON-HDL SPECIMENS. FOR MOREINFORMATION, SEE CLIENT ANNOUNCEMENT AT [email or web address] RISK RATIO LDL/HDL (test code = 2238) 2.66 RATIO <3.55 UNLESS OTHERW ISE INDICATED, ALL TESTING PERFORMED AT [facility] [address] [place] [address] AWAKE OVERNIGHT COUNSELOR: VA BOSE M.D. CLIA NUMBER [id number] [facility] [id number] HEMOGLOBIN [id number] 05:03:38* Test Item Value Reference Range Interpretation Comme nts HEMOGLOBIN A1c (test code = 56096) 9.0 % 4.2-5.6 H [employer] GUIDELINES FOR HGB A1C: PREDIABETES/INCREASED RISK . . . . . . . 5.7-6.4% DIAGNOSIS OF DIABETES . . . . . . . . . >=6.5% WITH CONFIRMATION OR APPROPRIATE SYMPTOMS NOTE: ASSAY MAY BE AFFECTED BY HEMOGLOBINOPATHIES (SICKLE CELL ANEMIA, S-C DISEASE, OTHERS) OR ARTIFICIALLY LOWERED BY DECREASED RED CELL SURVIVAL (HEMOLYTIC ANEMIAS, BLOOD LOSS, ETC.). CONSIDER ALTERNATE TESTING OR LABORATORY CONSULTATION. HEMOGLOBIN [id number] 00:00:00* Test Item Value Reference Range Interpretation Comme nts HEMOGLOBIN A1c (test code = 54825) 9.0 % Guanako F AustinLIPID [id number] 00:00:00* Test Item Value Reference Range Interpretation Comme nts CHOLESTEROL (test code = 2210) 131 MG/DL TRIGLYCERIDES (test code = 2232) 157 MG/DL HDL CHOLESTEROL (test code = 2220) 29 MG/DL CALC LDL CHOL (test code = 2237) 77 MG/DL RISK RATIO LDL/HDL (test cod e = 2238) 2.66 RATIO Guanako Tran AustinHEMOGLOBIN [id number] 00:00:00* Test Item Value Reference Range Interpretation Comme nts HEMOGLOBIN A1c (test code = 78950) 9.0 % Guanako Tran AustinLIPID [id number] 00:00:00* Test Item Value Reference Range Interpretation Comme nts CHOLESTEROL (test code = 2210) 131 MG/DL TRIGLYCERIDES (test code = 2232) 157 MG/DL HDL CHOLESTEROL (test code = 2220) 29 MG/DL CALC LDL CHOL (test code = 2237) 77 MG/DL RISK RATIO LDL/HDL (test cod e = 2238) 2.66 RATIO Guanako CisnerosHEMOGLOBIN [id number] 00:00:00* Test Item Value Reference Range Interpretation Comme nts HEMOGLOBIN A1c (test code = 97911) 9.0 % Guanako Tran AustinLIPID [id number] 00:00:00* Test Item Value Reference Range Interpretation Comme nts CHOLESTEROL (test code = 2210) 131 MG/DL TRIGLYCERIDES (test code = 2232) 157 MG/DL HDL CHOLESTEROL (test code = 2220) 29 MG/DL CALC LDL CHOL (test code = 2237) 77 MG/DL RISK RATIO LDL/HDL (test cod e = 2238) 2.66 RATIO Guanako Tran AustinHEMOGLOBIN [id number] 00:00:00* Test Item Value Reference Range Interpretation Comme nts HEMOGLOBIN A1c (test code = 31945) 9.0 % Guanako Tran AustinLIPID [id number] 00:00:00* Test Item Value Reference Range Interpretation Comme nts CHOLESTEROL (test code = 2210) 131 MG/DL TRIGLYCERIDES (test code = 2232) 157 MG/DL HDL CHOLESTEROL (test code = 2220) 29 MG/DL CALC LDL CHOL (test code = 2237) 77 MG/DL RISK RATIO LDL/HDL (test cod e = 2238) 2.66 RATIO Guanako Huffman Date/Time Note Provider Source Guanako Wang [facility]2025-01-24 00:00:00 Guanako Wang [facility]2025-01-10 00:00:00 Guanako Wang [facility]2024-12-04 00[facility]
[2025-01-03] MEDS ORDERED: ACETAMINOPHEN 500 MG TAB ONE (23:23)
[2025-01-03] MEDS ORDERED: IBUPROFEN 400 MG TAB ONE (23:24)
--- NOTE | 2025-01-04 00:04 | EDPHYS ---
Physician Documentation [facility] Name: Tyler Latif Age: 34 yrs Sex: Male : 1990 Arrival Date: 01/03/2025 Time: 22:03 Bed DX3 Private MD: Tristan Gallo HPI: 01/03 22:25 This 34 yrs old Black Male presents to ER via Ambulatory with complaints of Ankle cp Injury. 22:25 The patient presents with an injury, pain, that is acute, swelling, tenderness. cp 22:25 The complaints affect the left ankle. Onset: The symptoms/episode began/occurred 5 cp day(s) ago. 22:25 Context: resulted from a mis-step by the patient, The patient can fully bear weight on cp the affected extremity. the patient is able to ambulate, with moderate difficulty. Associated signs and symptoms: The patient has no apparent associated signs or symptoms. Historical: - Allergies: 22:16 metformin; me1 - PMHx: 22:16 Diabetes - NIDDM; Hypertension; me1 - PSHx: 22:16 hand surgery (Hypertension); me1 - Immunization history:: Adult Immunizations up to date. - Infectious Disease History:: Denies. - Social history:: Smoking status: Patient reports the use of cigarette tobacco products, smokes one-half pack cigarettes per day. ROS: 22:30 MS/extremity: Positive for pain, swelling, tenderness, of the lateral side of left cp ankle, Negative for decreased range of motion, deformity, paresthesias, 22:30 Neck: Negative for pain with movement, pain at rest, cp 22:30 Back: Negative for pain at rest, pain with movement, 22:30 Skin: Negative for rash, 22:30 All other systems are negative, Exam: 22:35 Constitutional: The patient appears in no acute distress, alert, awake, non-toxic, well cp developed, well nourished, obese, uncomfortable, 22:35 Head/Face: Normocephalic, atraumatic. cp 22:35 Chest/axilla: Inspection: normal, 22:35 Cardiovascular: Rate: normal, 22:35 Respiratory: the patient does not display signs of respiratory distress, Respirations: normal, no use of accessory muscles, no retractions, 22:35 Back: pain, is absent, ROM is normal, 22:35 Musculoskeletal/extremity: Extremities: noted in the lateral side of left ankle: pain, swelling, tenderness, There is no evidence of decreased ROM, ROM: limited passive range of motion due to pain, in the left ankle, Perfusion: the extremity is normally perfused throughout, Sensation intact. Achilles tendon intact and no pain to lateral side of left foot and/or proximal fibula. Vital Signs: 22:14 BP 139 / 94; Pulse 93; Resp 17; Temp 97.6; Pulse Ox 97% ; Weight 160.57 kg; Height 6 me1 ft. 0 in. ; Pain 7/10; 01/04 00:46 BP 136 / 88; Pulse 90; Resp 17; Pulse Ox 98% ; vc1 01/03 22:14 Body Mass Index 48.01 (160.57 kg, 182.88 cm) me1 01/03 22:14 Pain Scale: Adult me1 MDM: 01/03 22:21 Medical Screening Exam initiated cp 22:30 Differential diagnosis: fracture, sprain, dislocation. cp 01/04 00:01 Data reviewed: vital signs, nurses notes, radiologic studies, plain films. Independent cp interpretation of the following test(s) in the Emergency Department X-Ray: My interpretation is images of left ankle negative for fracture. Care significantly affected by the following chronic conditions: Diabetes, Hypertension, Obesity. Counseling: I had a detailed discussion with the patient and/or guardian regarding the historical points, exam findings, and any diagnostic results supporting the discharge/admit diagnosis, radiology results, to return to the emergency department if symptoms worsen or persist or if there are any questions or concerns that arise at home. Response to treatment: the patient's symptoms have mildly improved after treatment. 01/03 22:22 Order name: XRAY Ankle LEFT 3 view cp 01/04 00:01 Order name: Yayo wrap-joint; Complete Time: 00:31 cp 01/04 00:32 Order name: Walking boot; Complete Time: 00:32 vc1 Administered Medications: 01/03 23:30 Drug: Ibuprofen PO 800 mg PO once Route: PO; me1 23:30 Drug: Acetaminophen PO 1000 mg PO once Route: PO; me1 Disposition: 01/05 00:30 Chart complete. cp Disposition Summary: 01/04/25 00:04 Discharge Ordered Notes: Location: Home cp Problem: new cp Symptoms: have improved cp Condition: Stable cp Diagnosis - Sprain of ankle - left cp Followup: cp - With: Markel Becerra MD - When: 5 - 6 days - Reason: Recheck today's complaints Discharge Instructions: - Discharge Summary Sheet cp - Ankle Sprain cp - RICE Therapy for Routine Care of Injuries cp - Ankle Exercises cp Forms: - Medication Reconciliation Form cp - Antibiotic Education cp - Prescription Opioid Use cp - Patient Portal Instructions cp - Leadership Thank You Letter cp - Work release form vc1 Prescriptions: - Anaprox DS 550 mg Oral Tablet - take 1 tablet ORAL route every 12 hours As needed; 20 tablet; Refills: 0, cp Product Selection Permitted Signatures: Dispatcher [employer] EDMS Tristan Mcrae PA PA cp Catherine Matamoros RN RN vc1 Tanja Sung RN RN me1 Corrections: (The following items were deleted from the chart) 01/03 22:17 22:16 Allergies: No Known Allergies; me1 me1 01/04 00:31 00:01 Splint - Ankle: Aircast ordered. cp vc1
--- NOTE | 2025-01-04 00:04 | ER ---
Nurse's Notes [facility] Name: Tyler Latif Age: 34 yrs Sex: Male : 1990 Arrival Date: 01/03/2025 Time: 22:03 Bed DX3 Private MD: Diagnosis: Sprain of ankle-left Presentation: 01/03 22:14 Chief complaint: Patient states: rolled his left ankle on Saturday12/29/24 and the pain me1 is getting worse. 05/27, sharp today. Coronavirus screen: Vaccine status: Patient reports being unvaccinated. Ebola Screen: No symptoms or risks identified at this time. Initial Sepsis Screen: Does the patient meet any 2 criteria? HR > 90 bpm. No. Patient's initial sepsis screen is negative. Does the patient have a suspected source of infection? No. Patient's initial sepsis screen is negative. Risk Assessment: Do you want to hurt yourself or someone else? Patient reports no desire to harm self or others. Onset of symptoms was December 29, 2024. 22:14 Method Of Arrival: Ambulatory [facility] 22:14 Acuity: SAUL 4 me1 Triage Assessment: 22:16 General: Appears uncomfortable, obese, well groomed, well developed, Behavior is calm, me1 cooperative, appropriate for age. Pain: Complains of pain in anterior aspect of left ankle Pain does not radiate. Pain currently is 7 out of 10 on a pain scale. Quality of pain is described as sharp, Pain began suddenly, Is continuous. EENT: No signs and/or symptoms were reported regarding the EENT system. Neuro: Level of Consciousness is awake, alert, obeys commands, Oriented to person, place, time, situation, Appropriate for age. Cardiovascular: Patient's skin is warm and dry. Respiratory: Airway is patent Respiratory effort is even, unlabored, Respiratory pattern is regular, symmetrical. GI: No signs and/or symptoms were reported involving the gastrointestinal system. : No signs and/or symptoms were reported regarding the genitourinary system. Derm: Skin is intact, is healthy with good turgor, Skin is pink, warm \T\ dry. Musculoskeletal: Reports pain in anterior aspect of left ankle since saturday. 22:16 Injury Description: rolled left ankle on Kell. me1 Historical: - Allergies: 22:16 metformin; me1 - PMHx: 22:16 Diabetes - NIDDM; Hypertension; me1 - PSHx: 22:16 hand surgery (Hypertension); me1 - Immunization history:: Adult Immunizations up to date. - Infectious Disease History:: Denies. - Social history:: Smoking status: Patient reports the use of cigarette tobacco products, smokes one-half pack cigarettes per day. Screenin/17 00:43 [facility] ED Fall Risk Assessment (Adult) History of falling in the last 3 months, vc1 including since admission No falls in past 3 months (0 pts) Confusion or Disorientation No (0 pts) Intoxicated or Sedated No (0 pts) Impaired Gait No (0 pts) Mobility Assist Device Used No (0 pt) Altered Elimination No (0 pt) Score/Fall Risk Level 0 - 2 = Low Risk Oriented to surroundings, Maintained a safe environment, Educated pt \T\ family on fall prevention, incl call for assistance when getting out of bed, Hourly rounding (assess needs \T\ fall precautionary measures) done. Abuse screen: Denies threats or abuse. Nutritional screening: No deficits noted. Tuberculosis screening: No symptoms or risk factors identified. Vital Signs: 01/03 22:14 BP 139 / 94; Pulse 93; Resp 17; Temp 97.6; Pulse Ox 97% ; Weight 160.57 kg; Height 6 me1 ft. 0 in. ; Pain 7/10; 01/04 00:46 BP 136 / 88; Pulse 90; Resp 17; Pulse Ox 98% ; vc1 01/03 22:14 Body Mass Index 48.01 (160.57 kg, 182.88 cm) ms1 02 22:14 Pain Scale: Adult ms1 ED Course: 01/03 22:05 Patient arrived in ED. gm2 22:15 Tristan Mcrae PA is PHCP. cp 22:15 Tristan Gan MD is Attending Physician. cp 22:16 Triage completed. me1 22:16 Arm band placed on Patient placed in waiting room. ms1 22:43 XRAY Ankle LEFT 3 view In Process Unspecified. EDMS 01/04 00:00 Patient has correct armband on for positive identification. Bed in low position. Pulse vc1 ox on. NIBP on. 00:03 Markel Becerra MD is Referral Physician. cp 00:45 Provided Education on: f/u with ortho. vc1 00:45 No provider procedures requiring assistance completed. Patient did not have IV access vc1 during this emergency room visit. Administered Medications: 01/03 23:30 Drug: Ibuprofen PO 800 mg PO once Route: PO; me1 23:30 Drug: Acetaminophen PO 1000 mg PO once Route: PO; me1 Medication: 01/04 00:45 VIS not applicable for this client. vc1 Outcome: 00:04 Discharge ordered by MD. cp 00:45 Discharged to home ambulatory, with ortho boot vc1 00:45 Condition: stable 00:45 Discharge instructions given to patient, Instructed on discharge instructions, follow up and referral plans. Demonstrated understanding of instructions, follow-up care, 00:46 Patient left the ED. vc1 Signatures: Dispatcher [employer] EDMS Tristan Mcrae PA PA cp Calcote, Vanessa RN RN vc1 Tanja Sung RN RN me1 Basilia Rider 2 Corrections: (The following items were deleted from the chart) 01/03 22:17 22:16 Allergies: No Known Allergies; me1 me1
[2025-01-04 00:56] VITALS: TEMP 97.6
[2025-01-04 00:57] VITALS: BP 136/88; O2SAT 98
--- NOTE | 2025-01-04 05:41 | RAD REPORT ---
EXAM DESCRIPTION: Ankle Left 3 View CLINICAL HISTORY: 34 years Male Left ankle pain. COMPARISON: Radiograph of Left ankle 11/06/2022. TECHNIQUE: 3 view study of the left ankle were performed. FINDINGS: Subtle lucency with deformity distal fibular head suspicious for subacute transverse fracture. Associ ated lateral soft tissue swelling. No additional evidence for fracture. Findings indicating pes planus. IMPRESSION: Suspected subacute transverse fracture distal fibular head. Associated lateral soft tissue swelling. Electronically signed by: Noelle Fisher MD 01/03/2025 11:30 PM [facility] Due to temporary technical issues with the PACS/Telestream reporting system, reports are being gina d by the in-house radiologist without review as a courtesy to ensure prompt reporting the interpreting radiologist is fully responsible for the content of the report. Transcribed Date/Time: 01/04/2025 5:40 AM
== END 2025-01-04 00:46 | disposition home or self-care (01) ==
LOC: ER 22:03
DX: S93.402A Sprain of unspecified ligament of left ankle, initial encounter (principal)
CPT/HCPCS: 99283

== ENCOUNTER 2025-08-05 08:43 | Emergency (ER) | payer BC ==
--- OUTSIDE RECORDS SUMMARY | 2025-08-05 08:51 | XMS REPORT | Continuity of Care Document ---
Author Name Unknown Address [address] [facility] [address] [place] [address] [facility] Address [address] [facility] 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 Name Role Phone Pcp, Patient Does Not Have A Primary Care Physic mayco ENRICO MARTÍNEZ Attending Clinician Unavailable CARLEEN CHAVARRIA Attending Clinician UnavailCARLEEN Everett Attending Clinician Unavaila luis f Doctor Unassigned, [place] Attending Clinician U mikel Lorenzo RN, Hawa Zamarripa Attending Clinician MARGUERITE INTERIANO Attending Clinician UnavailMarguerite Shah MD Attending Clinician [phone] Triny Lang Attending Clinician Vtc-Lab Attending Clinician Unavailable Leilani Oliva LVN Attending Clinician [phone] Della Kaye MD Attending Clinician [phone] Reina Garcia MD Attending Clinician [phone] DELLA KAYE Attending Clinician Unavailable Cheikh Miguel MD Attending Clinician Meenu MILLER, Dank Hendricks Attending Clinician Baba MILLER, Reina Daniel Admitting Clinician Payers Payer Name Policy Type Policy Number Effective Date Expirati on Date Source [facility] DEMETRIA MELENDREZ COPAY FOCUS 9 [id number] 2024 00:00:00 [facility] [id number] Problems Condition Name Condition Details Condition Category Status Onset Date Resolution Date Last Treatment Date Treating Clinician Comments Source Morbid obesity with body mass index of 40.0-49.9 Morbid obesity with body mass index of 40.0-49.9 Disease Active 08-15 00:00: 00 [facility] Sepsis Sepsis Disease Active 08-15 00:00: 00 [facility] Hypotensio n Hypotensio n Disease Active 08-15 00:00: 00 [facility] Allergies, Adverse Reactions, Alerts Allergy Name Allergy Type Status Severity Reaction(s) Onset Date Inactive Date Treating Clinician Comments Source metformi n Propensi ty to adverse reaction to drug Active 11-27 00:00: 00 Guanako Cisneros Metformi n and Related - CLASS Propensi ty to adverse reaction to drug Active 03-22 00:00: 00 Guanako Cisneros Metformi n Propensi ty to adverse reaction s Active Other - See comments 2014-11 00:00: 00 'liver swelling" [facility] METFORMI N DRUG INGREDI Active Other-Cmnt 2014-11 00:00: 00 [facility] Social History Social Habit Start Date Stop Date Quantity Comments Source Exposure to SARS-CoV-2 (event) Not sure [facility] History of tobacco use Current smoker [facility] of Social function 2021-08-31 00:00:00 2021-08-31 00:00:00 [facility] Tobacco use and exposure 2021-08-15 00:00:00 2021-08-15 00:00:00 Smokeless tobacco non-user [facility] Education 2021-08-15 00:00:00 2021-08-15 00:00:00 13 [facility] Sex Assigned At 1990 00:00:00 1990 00:00:00 [facility] Smoking Status Start Date Stop Date Source Ex-smoker 2021-08-15 00:00:00 2021-08-15 00:00:00 U [facility] Medications Ordered Medication Name Filled Medication Name Start Date Stop Date Current Medication? Ordering Clinician Indication Dosage Frequency Signature (SIG) Comments Components Source carvedilol 25 mg tablet - 00:00: 00 Yes 1mg Guanako Cisneros glipizide ER 2.5 mg tablet, extended release 24 hr 01-15 00:00: 00 Yes 1mg Guanako Cisneros carvedilol 6.25 mg tablet 01-15 00:00: 00 Yes 1mg Guanako Cisneros lisinopril 20 mg tablet 2-07 00:00: 00 Yes 1mg Guanako Cisneros Glucose Gel 40 % oral gel 1-24 00:00: 00 Yes 15% Guanako Cisneros glipizide ER 2.5 mg tablet, extended release 24 hr -24 00:00: 00 Yes 1mg Guanako Cisneros lisinopril 20 mg tablet 1-10 00:00: 00 Yes 1mg Guanako Cisneros glipizide 5 mg tablet 1- 00:00: 00 Yes 1mg Guanako Marc Cisneros TAKE 1 TABLET BY MOUTH TWICE A DAY 2022-11 00:00: 00 02-16 00:00 :00 No 10 Guanako Marc Cisneros TAKE 1 TABLET TWICE DAILY WITH FOOD. 2022-11 00:00: 00 02-16 00:00 :00 No [id number] Guanako Marc Cisneros APPLY SPARINGLY TO AFFECTED AREA(S) TWICE DAILY 2022-11 00:00: 00 02-16 00:00 :00 No 2 Guanako Marc Blayne TAKE 1 TABLET TWICE DAILY. 2022-11 00:00: 00 02-16 00:00 :00 No 5 Guanako F Blayne TAKE 1 TABLET BY MOUTH TWICE DAILY . 7- 00:00: 00 Yes Guanako Cisneros TAKE 1 TABLET BY MOUTH TWICE DAILY 7 00:00: 00 Yes Guanako Cisneros 2 po bid 6- 00:00: 00 Yes 50 Guanako Cisneros TAKE 1 TABLET TWICE DAILY. 6 00:00: 00 02-16 00:00 :00 No 5 Guanako Cisneros TAKE 1 TABLET TWICE DAILY. 6- 00:00: 00 02-16 00:00 :00 No 100 [...] NOT EXCEED 8 TABLETS PER DAY 2021-11 00:00: 00 02-16 00:00 :00 No Guanako Cisneros TAKE 1 TABLET BY MOUTH EVERY 12 HOURS 2021-11 012 00:00: 00 02-16 00:00 :00 No Guanako Cisneros GABAPENTIN 100 mg capsule 2020-11- 00:00: 00 Yes [id number] TAKE 2 CAPSULES BY MOUTH TWICE DAILY [facility] amlodipine 10 mg tablet 2020-11 0-19 00:00: 00 Yes 1mg Guanako Cisneros gabapentin 100 mg capsule 2020-11 0- 00:00: 00 09-25 00:00 :00 No [id number] 200mg Take 2 capsules by mouth 2 (two) times daily. [facility] aspirin 81 mg chewable tablet 2020-11 0-08 00:00: 00 Yes [id number] 81mg Take 1 tablet by mouth daily. [facility] atorvastati n 20 mg tablet 2020-11 0 00:00: 00 Yes [id number] 20mg Take 1 tablet by mouth at bedtime. [facility] insulin regular human 100 unit/mL injection 2020-11 0 00:00: 00 Yes [id number] Inject 3 units SQ daily with lunch [facility] lancets 21 gauge Misc 2020-11 0 00:00: 00 Yes [id number] Use as directed [facility] blood sugar diagnostic strip 2020-11 0 00:00: 00 Yes [id number] Use as directed [facility] Insulin [place], Disposable, 32 gauge x 5/16" Ndle 2020-11 0 00:00: 00 Yes [id number] Use as directed [facility] blood sugar diagnostic strip 2020-11 00:00: 00 Yes [id number] Use as directed [facility] Insulin [place], Disposable, 32 gauge x 5/16" Ndle 2020-11 0 00:00: 00 Yes [id number] Use as directed [facility] insulin NPH and regular human 70-30 100 unit/mL (70-30) injection 2020-11 0 00:00: 00 09-24 04:59 :00 No [id number] 14U inject 14 Units under the skin 2 (two) times daily before breakfast and dinner for 30 days. [facility] glipizide 5 mg tablet 8-05 00:00: 00 Yes 1mg Guanako Cisneros amlodipine 5 mg tablet 0 8-05 00:00: 00 Yes 1mg Guanako Cisneros amlodipine 5 mg tablet 0 5-05 00:00: 00 Yes 1mg Guanako Cisneros cyclobenzap rine 10 mg tablet 5-05 00:00: 00 Yes 1mg Guanako Cisneros indomethaci n 50 mg capsule 5-05 00:00: 00 Yes 1mg Guanako Cisneros Immunizations Ordered Immunization Name Filled Immunization Name Date Status Comments Source Pneumococcal Polysaccharide, PPSV23 (PNEUMOVAX) 2014-05-20 00:00:00 Completed [facility] Pneumococcal Polysaccharide, PPSV23 (PNEUMOVAX) 2014-05-20 00:00:00 Completed [facility] Meningococcal Polysaccharide (groups A, C, Y and W-135) conjugate vaccine (MCV4P) 2013-02-19 00:00:00 Completed [facility] TDAP 2013-02-19 00:00:00 Completed [facility] Meningococcal Polysaccharide (groups A, C, Y and W-135) conjugate vaccine (MCV4P) 2013-02-19 00:00:00 Completed [facility] TDAP 2013-02-19 00:00:00 Completed [facility] Meningococcal Polysaccharide (groups A, C, Y and W-135) conjugate vaccine (MCV4P) Unknown Completed [facility] Pneumococcal Polysaccharide, PPSV23 (PNEUMOVAX) Unknown Completed [facility] TDAP Unknown Completed [facility] Vital Signs Vital Name Observation Time Observation Value Comments S ource Systolic blood pressure 2021-08-28 20:36:00 139 mm[Hg] [facility] Diastolic blood pressure 2021-08-28 20:36:00 93 mm[Hg] [facility] Heart rate 2021-08-28 20:36:00 90 /min [facility] Body temperature 2021-08-28 20:33:00 36.33 Hailey [facility] Body height 2021-08-28 20:33:00 182.9 cm [facility] Body weight 2021-08-28 20:33:00 159.031 kg [facility] BMI 2021-08-28 20:33:00 47.55 kg/m2 [facility] Oxygen saturation in Arterial blood by Pulse oximetry 2021-08-28 20:33:00 99 /min [facility] BP Systolic 2025-01-25 17:43:00 153 mm[Hg] Step hen Marc Cisneros BP Diastolic 2025-01-25 17:43:00 103 mm[Hg] Matthew Cisneros Weight Measured 2025-01-25 17:43:00 354.00 pounds Guanako Cisneros Height Measured 2025-01-25 17:43:00 72.00 inches Guanako Tran Blayne Body Temperature 2025-01-25 17:43:00 97.30 degrees Guanako F Blayne Heart Rate 2025-01-25 17:43:00 120.00 /min Step hen F Blayne Respiratory Rate 2025-01-25 17:43:00 18.00 /min Guanako F Blayne BP Systolic 2025-01-25 17:19:00 153 mm[Hg] Step hen F Blayne BP Diastolic 2025-01-25 17:19:00 103 mm[Hg] Matthew phen F Blayne Weight Measured 2025-01-25 17:19:00 354.00 pounds Guanako F Blayne Height Measured 2025-01-25 17:19:00 72.00 inches Guanako F Blayne Body Temperature 2025-01-25 17:19:00 97.30 degrees Guanako F Blayne Heart Rate 2025-01-25 17:19:00 120.00 /min Step hen F Blayne Respiratory Rate 2025-01-25 17:19:00 18.00 /min Guanako F Blayne BP Systolic 2025-01-15 11:12:00 170 mm[Hg] Step hen F Blayne BP Diastolic 2025-01-15 11:12:00 112 mm[Hg] Matthew phen F Blayne Weight Measured 2025-01-15 11:12:00 355.80 pounds Guanako F Blayne Height Measured 2025-01-15 11:12:00 72.00 inches Guanako F Blayne Body Temperature 2025-01-15 11:12:00 98.00 degrees Guanako F Blayne Heart Rate 2025-01-15 11:12:00 109.00 /min Step hen F Blayne Respiratory Rate 2025-01-15 11:12:00 19.00 /min Guanako F Blayne BP Systolic 2024-12-25 17:55:00 159 mm[Hg] Step [...] 2024-12-11 11:30:00 72.00 inches Guanako F Blayne BP Systolic 2024-11-28 14:19:00 164 mm[Hg] Step hen F Blayne BP Diastolic 2024-11-28 14:19:00 113 mm[Hg] Matthew phen F Blayne Weight Measured 2024-11-28 14:19:00 358.20 pounds Guanako F Blayne Height Measured 2024-11-28 14:19:00 72.00 inches Guanako F Blayne Body Temperature 2024-11-28 14:19:00 97.60 degrees Guanako F Blayne Heart Rate 2024-11-28 14:19:00 101.00 /min Step hen F Blayne Respiratory Rate 2024-11-28 14:19:00 Guanako F Blayne BP Systolic 2024-11-27 14:35:00 [...] Weight Measured 2021-09-05 16:54:00 343.00 pounds Guanako F Blayne Height Measured 2021-09-05 16:54:00 72.00 inches Guanako F Blayne Body Temperature 2021-09-05 16:54:00 Guanako F Blayne Heart Rate 2021-09-05 16:54:00 Bina en F Blayne Respiratory Rate 2021-09-05 16:54:00 Guanako F Blayne BP Systolic 2020-03-22 14:16:00 143 mm[Hg] Step hen F Blayne BP Diastolic 2020-03-22 14:16:00 107 mm[Hg] Matthew phen F Blayne Weight Measured 2020-03-22 14:16:00 389.00 pounds Guanako F Blayne Height Measured 2020-03-22 14:16:00 72.00 inches Guanako F Blayne Body Temperature 2020-03-22 14:16:00 97.60 degrees Guanako F Blayne Heart Rate 2020-03-22 14:16:00 105.00 /min Step hen F Blayne Respiratory Rate 2020-03-22 14:16:00 18.00 /min Guanako Cisneros Procedures Procedure Date / Time Performed Performing Clinicia n Source REFERRAL- REQUEST/RESPONSE 2023-04-29 05:01:00 Doctor Unassigned, [place] [facility] URINALYSIS 2021-08-28 21:53:00 Marguerite Interiano [facility] PROTEIN CREAT RATIO URINE RANDOM 2021-08-28 21:53:00 Marguerite Interiano [facility] PHOSPHORUS 2021-08-28 21:50:00 Marguerite Interiano [facility] URIC ACID 2021-08-28 21:50:00 Marguerite Interiano [facility] MAGNESIUM 2021-08-28 21:50:00 Marguerite Interiano [facility] COMP. METABOLIC PANEL (69407) 2021-08-28 21:50:00 Marguerite Interiano [facility] CBC WITH DIFF 2021-08-28 21:50:00 Marguerite Interiano [facility] Encounters Start Date/Time End Date/Time Encounter Type Admission Type Attending [facility] Care Department Encounter ID Source 2025-01-25 17:16:06 2025-01-25 17:16:06 Outpatient SFA [id number] [id number] Guanako Cisneros 2025-01-25 00:00:00 2025-01-25 00:00:00 Outpatient Visit SFA [id number] Guanako Cisneros 2025-01-15 00:00:00 2025-01-15 00:00:00 Outpatient Visit SFA [id number] Guanako Cisneros 2025-01-06 00:00:00 2025-01-06 00:00:00 Outpatient ENRICO MARTÍNEZ [id number] [facility] 2024-12-25 17:48:08 2024-12-25 17:48:08 Outpatient SFA [id number] [id number] Guanako Cisneros 2024-12-25 00:00:00 2024-12-25 00:00:00 Outpatient Visit SFA [id number] Guanako Cisneros 2024-12-11 11:24:40 2024-12-11 11:24:40 Outpatient SFA SFA [id number] Guanako Cisneros 2024-12-11 00:00:00 2024-12-11 00:00:00 Outpatient Visit SFA [id number] Guanako Cisneros 2024-12-04 14:43:59 2024-12-04 14:43:59 Outpatient SFA SFA [id number] Guanako Cisneros 2024-11-28 13:52:41 2024-11-28 13:52:41 Outpatient SFA [facility] [id number] Guanako Cisneros 2024-11-27 00:00:00 2024-11-27 00:00:00 Outpatient Visit SFA [id number] Guanako Cisneros 2024-11-19 14:52:49 2024-11-19 14:52:49 Outpatient SFA [facility] [id number] Guanako Cisneros 2024-10-21 14:11:10 2024-10-21 14:11:10 Outpatient SFA [facility] [id number] Guanako Cisneros 2024-10-21 00:00:00 2024-10-21 00:00:00 Outpatient Visit [facility] [id number] Guanako Cisneros 2024-08-21 00:00:00 2024-08-21 00:00:00 Outpatient ENRICO MARTÍNEZ [id number] [facility] 2024-06-25 00:00:00 2024-06-25 00:00:00 Outpatient ENRICO MARTÍNEZ [id number] [facility] 2023-11-20 00:00:00 2023-11-20 00:00:00 Outpatient ENRICO MARTÍNEZ [id number] [facility] 2023-09-25 11:53:40 2023-09-25 11:53:40 Outpatient SFA [facility] [id number] Guanako Cisneros 2023-05-15 16:00:00 2023-05-15 16:00:00 Outpatient CARLEEN BARRERA STRAHIL [facility] [id number] [facility] 2023-05-08 00:00:00 2023-05-08 00:00:00 Patient Secure Msg Doctor Unassigned, [place] [facility] 1.2.840.114 350.1.13.10 4.2.7.2.686 [id number] [facility] 2023-05-01 13:00:00 2023-05-01 13:00:00 Outpatient CARLEEN BARRERA STRAHIL [facility] [id number] [facility] 2023-04-29 00:00:00 2023-04-29 00:00:00 Orders Only Doctor Unassigned, [place] [facility] 1..114 350.1.13.10 4.2.7.2.686 [id number] [facility] 2023-04-27 13:45:41 2023-04-27 13:45:41 Outpatient [facility] [id number] Guanako Cisneros 2023-03-22 14:03:03 2023-03-22 14:03:03 Outpatient [facility] [id number] Guanako Cisneros 2021-09-27 00:00:00 2021-09-27 00:00:00 Patient Outreach Bj LatishaCaro BOTELLO 1.84.114 350.1.13.10 4.2.7.2.686 [id number] [facility] 2021-09-25 15:30:00 2021-09-25 15:30:00 Outpatient MARGUERITE CHÁVEZ [facility] [id number] [facility] 2021-09-24 00:00:00 2021-09-24 00:00:00 Sheila Interiano [facility] 1..114 350.1.13.10 4.2.7.2.686 [id number] [facility] 2021-09-21 00:00:00 2021-09-21 00:00:00 Patient Outreach Bj LatishaCaro BOTELLO 1.84.114 350.1.13.10 4.2.7.2.686 [id number] [facility] 2021-09-08 00:00:00 2021-09-08 00:00:00 [facility] [place] [facility] 1.2.840.114 350.1.13.10 4.2.7.2.686 [id number] [facility] 2021-09-04 00:00:00 2021-09-04 00:00:00 Patient Outreach Hawa Lorenzo [place] 1.2.840.114 350.1.13.10 4.2.7.2.686 [id number] [facility] 2021-09-01 00:00:00 2021-09-01 00:00:00 Patient Outreach PreciousTriny [place] 1.2.840.114 350.1.13.10 4.2.7.2.686 [id number] [facility] 2021-08-31 09:10:53 2021-08-31 11:10:53 Patient Outreach Hawa Lorenzo 1.2.840.114 350.1.13.10 4.2.7.2.686 [id number] [facility] 2021-08-28 16:41:20 2021-08-28 16:56:20 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 Vtc-Lab Marguerite Interiano [facility] 1.2.840.114 350.1.13.10 4.2.7.2.686 [id number] [facility] 2021-08-28 15:03:38 2021-08-28 15:33:38 Office Visit [facility]uer[facility] 1.2.840.114 350.1.13.10 4.2.7.2.686 [id number] [facility] 2021-08-28 15:30:00 2021-08-28 15:30:00 Outpatient R MARGUERITE INTERIANO [facility] [id number] [facility] 2021-08-28 00:00:00 2021-08-28 00:00:00 Patient Outreach Hawa Lorenzo 1.2.840.114 350.1.13.10 4.2.7.2.686 [id number] [facility] 2021-08-25 00:00:00 2021-08-25 00:00:00 Transition of Care Leilani Oliva [place] 1.2.840.114 350.1.13.10 4.2.7.2.686 [id number] [facility] 2021-08-15 09:58:00 2021-08-24 17:20:00 Hospital Encounter Della Kaye Mohammad J [facility] [place] [place] ([facility]) 1.2840.114 350.1.13.10 4.2.7.2.686 [id number] [facility] 2021-08-17 00:00:00 2021-08-17 00:00:00 Patient Outreach Hawa Lorenzo 1.2.840.114 350.1.13.10 4.2.7.2.686 [id number] [facility] 2021-08-15 09:58:00 2021-08-15 09:58:00 Emergency X DELLA KAYE [facility] ERT [id number] [facility] 2019-12-29 01:24:33 2019-12-29 02:37:00 Emergency Cheikh Miguel [facility] 1.2.840.114 350.1.13.10 4.2.7.2.686 [id number] [facility] 2019-07-30 08:38:41 2019-07-30 09:38:00 Emergency Dank Corrigan [facility] 1.2.840.114 350.1.13.10 4.2.7.2.686 [id number] [facility] Results Test Description Test Time Test Comments Results Result Co mments Source COMPREHENSIVE METABOLIC [id number] 03:55:07* Test Item Value Reference Range Interpretation Comme nts GLUCOSE (test code = 2216) 167 MG/DL 70-99 H BUN (test code = 2207) 5 MG/DL 6-20 L CREATININE (test code = 2213) 0.83 MG/DL 0.80-1.40 eGFR (2020 CKD-EPI) (test code = 39284) 118 ML/MIN/1.73 >60 CALC BUN/CREAT (test code = 5) 6 RATIO 6-28 SODIUM (test code = 223) 136 MEQ/L 133-146 POTASSIUM (test code = 2228) 4.1 MEQ/L 3.5-5.4 CHLORIDE (test code = 2214) 100 MEQ/L 95-107 CARBON DIOXIDE (test code = 6) 20 MEQ/L 19-31 CALCIUM (test code = 2209) 10.1 MG/DL 8.5-10.5 PROTEIN, TOTAL (test code = 222) 8.4 G/DL 6.1-8.3 H ALBUMIN (test code = 2201) 4.5 G/DL 3.5-5.2 CALC GLOBULIN (test code = 2240) 3.9 G/DL 1.9-3.7 H CALC A/G RATIO (test code = 2233) 1.2 RATIO 1.0-2.6 BILIRUBIN, TOTAL (test code = 2206) 1.3 MG/DL <=1.2 H ALKALINE PHOSPHATASE (test code = 2203) 103 U/L 40-112 AST (test code = 2218) 23 U/L 9-50 ALT (test code = 2219) 27 U/L 5-50 HEMOGLOBIN [id number] 02:03:55* Test Item Value Reference Range Interpretation Comme nts HEMOGLOBIN A1c (test code = 79057) 8.0 % 4.2-5.6 H [employer] GUIDELINES FOR HGB A1C: [...] CONSIDER ALTERNATE TESTING OR LABORATORY CONSULTATION. HEMOGLOBIN [id number] 00:00:00* Test Item Value Reference Range Interpretation Comme [facility] HEMOGLOBIN A1c (test code = 36072) 8.0 % Guanako Tran AustinALBUMIN/CREATININE RATIO, RANDOM [id number] 00:00:00* Test Item Value Reference Range Interpretation Comme nts CREATININE, URINE, CONC. (te st code = 2072) 205.0 MG/DL ALBUMIN, URINE, RANDOM (test code = 02204) 298.9 MG/DL CALC ALBUMIN/CREAT, RND (rosetta t code = 51494) 1458 MG/G Guanako CisnerosCOMPREHENSIVE METABOLIC [id number] 00:00:00* Test Item Value Reference Range Interpretation Comme nts GLUCOSE (test code = 2217) 167 MG/DL BUN (test code = 2208) 5 MG/DL CREATININE (test code = 2214) 0.83 MG/DL eGFR (2020 CKD-EPI) (test code = 60963) 118 ML/MIN/1.73 CALC BUN/CREAT (test code = [...] code = 2219) 27 U/L Guanako CisnerosHEMOGLOBIN [id number] 00:00:00* Test Item Value Reference Range Interpretation Comme nts HEMOGLOBIN A1c (test code = 99161) 8.0 % Guanako Tran AustinALBUMIN/CREATININE RATIO, RANDOM [id number] 00:00:00* Test Item Value Reference Range Interpretation Comme nts CREATININE, URINE, CONC. (te st code = 2071) 205.0 MG/DL ALBUMIN, URINE, RANDOM (test code = 13255) 298.9 MG/DL CALC ALBUMIN/CREAT, RND (rosetta t code = 20042) 1458 MG/G Guanako CisnerosCOMPREHENSIVE METABOLIC [id number] 00:00:00* Test Item Value Reference Range Interpretation Comme nts GLUCOSE (test code = 2217) 167 MG/DL BUN (test code = 2208) 5 MG/DL CREATININE (test code = 2214) 0.83 MG/DL eGFR (2020 CKD-EPI) (test code = 26291) 118 ML/MIN/1.73 CALC BUN/CREAT (test code = [...] code = 2219) 27 U/L Guanako CisnerosHEMOGLOBIN [id number] 00:00:00* Test Item Value Reference Range Interpretation Comme nts HEMOGLOBIN A1c (test code = 81616) 8.0 % Guanako Tran AustinALBUMIN/CREATININE RATIO, RANDOM [id number] 00:00:00* Test Item Value Reference Range Interpretation Comme nts CREATININE, URINE, CONC. (te st code = 207) 205.0 MG/DL ALBUMIN, URINE, RANDOM (test code = 48950) 298.9 MG/DL CALC ALBUMIN/CREAT, RND (rosetta t code = 71436) 1458 MG/G Guanako CisnerosCOMPREHENSIVE METABOLIC [id number] 00:00:00* Test Item Value Reference Range Interpretation Comme nts GLUCOSE (test code = 2217) 167 MG/DL BUN (test code = 2208) 5 MG/DL CREATININE (test code = 2214) 0.83 MG/DL eGFR (2020 CKD-EPI) (test code = 59126) 118 ML/MIN/1.73 CALC BUN/CREAT (test code = [...] code = 2219) 27 U/L Guanako CisnerosHEMOGLOBIN [id number] 00:00:00* Test Item Value Reference Range Interpretation Comme charmaine HEMOGLOBIN A1c (test code = 05913) 8.0 % [place] CisnerosALBUMIN/CREATININE RATIO, RANDOM [id number] 00:00:00* Test Item Value Reference Range Interpretation Comme [facility] CREATININE, URINE, CONC. (te st code = 207) 205.0 MG/DL ALBUMIN, URINE, RANDOM (test code = 59524) 298.9 MG/DL CALC ALBUMIN/CREAT, RND (rosetta t code = 15884) 1458 MG/G [place] CisnerosCOMPREHENSIVE METABOLIC [id number] 00:00:00* Test Item Value Reference Range Interpretation Comme nts GLUCOSE (test code = 2217) 167 MG/DL BUN (test code = 2208) 5 MG/DL CREATININE (test code = 2214) 0.83 MG/DL eGFR (2020 CKD-EPI) (test code = 50098) 118 ML/MIN/1.73 CALC BUN/CREAT (test code = [...] 2204) 103 U/L AST (test code = 221) 23 U/L ALT (test code = 2219) 27 U/L [place] CisnerosHEMOGLOBIN [id number] 00:00:00* Test Item Value Reference Range Interpretation Comme [facility] HEMOGLOBIN A1c (test code = 05802) 8.0 % [place] CisnerosALBUMIN/CREATININE RATIO, RANDOM [id number] 00:00:00* Test Item Value Reference Range Interpretation Comme [facility] CREATININE, URINE, CONC. (te st code = 2072) 205.0 MG/DL ALBUMIN, URINE, RANDOM (test code = 65675) 298.9 MG/DL CALC ALBUMIN/CREAT, RND (rosetta t code = 05567) 1458 MG/G [place] CisnerosCOMPREHENSIVE METABOLIC [id number] 00:00:00* Test Item Value Reference Range Interpretation Comme nts GLUCOSE (test code = 2217) 167 MG/DL BUN (test code = 2208) 5 MG/DL CREATININE (test code = 2214) 0.83 MG/DL eGFR (2020 CKD-EPI) (test code = 86365) 118 ML/MIN/1.73 CALC BUN/CREAT (test code = [...] code = 2219) 27 U/L Guan[place] Tran PickensLIPID [id number] 11:38:17* Test Item Value Reference Range Interpretation [...] SPECIMENS. FOR MOREINFORMATION, SEE CLIENT ANNOUNCEMENT AT [email or web address] RISK RATIO LDL/HDL (test code = 2238) 2.66 RATIO <3.55 UNLESS OTHERW ISE INDICATED, ALL TESTING PERFORMED AT [facility] [address] [place] [id number] DATA PROCESSING SYSTEMS CONSULTANT: VA BOSE M.D. IA NUMBER [id number] [facility] [place]. [id number] HEMOGLOBIN [id number] 05:03:38* Test Item Value Reference Range Interpretation Comme nts HEMOGLOBIN A1c (test code = 49339) 9.0 % 4.2-5.6 H [employer] GUIDELINES FOR HGB A1C: [...] ETC.). CONSIDER ALTERNATE TESTING OR LABORATORY CONSULTATION. LIPID [id number] 00:00:00* Test Item Value Reference Range Interpretation Comme nts CHOLESTEROL (test code = 2210) 131 MG/DL TRIGLYCERIDES (test code = 2232) 157 MG/DL HDL CHOLESTEROL (test code = 2220) 29 MG/DL CALC LDL CHOL (test code = 2237) 77 MG/DL RISK RATIO LDL/HDL (test cod e = 2238) 2.66 RATIO Gu[place] Tran AustinHEMOGLOBIN [id number] 00:00:00* Test Item Value Reference Range Interpretation Comme nts HEMOGLOBIN A1c (test code = 97181) 9.0 % Gu[place] Tran AustinLIPID [id number] 00:00:00* Test Item Value Reference Range Interpretation Comme nts CHOLESTEROL (test code = 2210) 131 MG/DL TRIGLYCERIDES (test code = 2232) 157 MG/DL HDL CHOLESTEROL (test code = 2220) 29 MG/DL CALC LDL CHOL (test code = 2237) 77 MG/DL RISK RATIO LDL/HDL (test cod e = 2238) 2.66 RATIO Gu[place] Tran AustinHEMOGLOBIN [id number] 00:00:00* Test Item Value Reference Range Interpretation Comme nts HEMOGLOBIN A1c (test code = 36720) 9.0 % Gu[place] Tran AustinLIPID [id number] 00:00:00* Test Item Value Reference Range Interpretation Comme nts CHOLESTEROL (test code = 2210) 131 MG/DL TRIGLYCERIDES (test code = 2232) 157 MG/DL HDL CHOLESTEROL (test code = 2220) 29 MG/DL CALC LDL CHOL (test code = 2237) 77 MG/DL RISK RATIO LDL/HDL (test cod e = 2238) 2.66 RATIO Gu[place] Tran AustinHEMOGLOBIN [id number] 00:00:00* Test Item Value Reference Range Interpretation Comme nts HEMOGLOBIN A1c (test code = 50630) 9.0 % Gu[place] Tran AustinLIPID [id number] 00:00:00* Test Item Value Reference Range Interpretation Comme nts CHOLESTEROL (test code = 2210) 131 MG/DL TRIGLYCERIDES (test code = 2232) 157 MG/DL HDL CHOLESTEROL (test code = 2220) 29 MG/DL CALC LDL CHOL (test code = 2237) 77 MG/DL RISK RATIO LDL/HDL (test cod e = 2238) 2.66 RATIO Gu[place]ako CisnerosHEMOGLOBIN [id number] 00:00:00* Test Item Value Reference Range Interpretation Comme nts HEMOGLOBIN A1c (test code = 55428) 9.0 % Guanako CisnerosLIPID [id number] 00:00:00* Test Item Value Reference Range Interpretation Comme nts CHOLESTEROL (test code = 2210) 131 MG/DL TRIGLYCERIDES (test code = 2232) 157 MG/DL HDL CHOLESTEROL (test code = 2220) 29 MG/DL CALC LDL CHOL (test code = 2237) 77 MG/DL RISK RATIO LDL/HDL (test cod e = 2238) 2.66 RATIO Gu[place]ako CisnerosHEMOGLOBIN [id number] 00:00:00* Test Item Value Reference Range Interpretation Comme nts HEMOGLOBIN A1c (test code = 47434) 9.0 % Gu[place] CisnerosLIPID [id number] 00:00:00* Test Item Value Reference Range Interpretation Comme nts CHOLESTEROL (test code = 2210) 131 MG/DL TRIGLYCERIDES (test code = 2232) 157 MG/DL HDL CHOLESTEROL (test code = 2220) 29 MG/DL CALC LDL CHOL (test code = 2237) 77 MG/DL RISK RATIO LDL/HDL (test cod e = 2238) 2.66 RATIO Gu[place]ako CisnerosHEMOGLOBIN [id number] 00:00:00* Test Item Value Reference Range Interpretation Comme nts HEMOGLOBIN A1c (test code = 30338) 9.0 % Guanako Tran Blayne Notes Date/Time Note Provider Source Guanako MarcFatou [facility]2025-02-28 00:00:00 [place] [facility]2025-02-07 00:00:00 Gu[place] MarcFatou [facility]2025-01-24 00:00:00 Gu[place] FFatou [facility]2025-01-10 00:00:00 Gu[place] MarcFatou [facility]2024-12-04 00:00:00 [facility]
[2025-08-05] MEDS ORDERED: LIDOCAINE 1% 20 ML MDV ONE (09:12)
--- NOTE | 2025-08-05 09:38 | EDPHYS ---
Physician Documentation [facility] Name: Tyler Latif Age: 34 yrs Sex: Male : 1990 Arrival Date: 08/05/2025 Time: 08:43 Bed 4 Private MD: ED Physician Batsheva Munoz HPI: 08/05 10:56 This 34 yrs old Black Male presents to ER via Ambulatory with complaints of Knot on dr5 back. 10:56 Onset: The symptoms/episode began/occurred 3 week(s) ago. Patient is a 34-year-old male dr5 with history of hypertension and diabetes coming in with 3 weeks of worsening cyst to midline upper back. patient states that he ran out of his blood pressure and diabetes medications and has not been able to follow-up primary care doctor yet. Patient denies headache, numbness tingling, nausea, vomiting, diarrhea, or fever.. Historical: - Allergies: 08:58 metformin; mb9 - Home Meds: 08:58 carvedilol 25 mg oral tablet 1 tab 2 times per day [Active]; glipizide 2.5 mg Oral mb9 tablet 1 tab daily [Active]; - PMHx: 08:58 Diabetes - NIDDM; Hypertension; mb9 - PSHx: 08:58 hand surgery (en); mb9 - Immunization history:: Adult Immunizations up to date. - Infectious Disease History:: Denies. - Social history:: Smoking status: Patient reports the use of cigarette tobacco products, smokes one-half pack cigarettes per day. ROS: 10:56 Constitutional: as per hpi dr5 Exam: 10:56 Constitutional: This is a well developed, well nourished patient who is awake, alert, dr5 and in no acute distress. Head/Face: Normocephalic, atraumatic. Eyes: Pupils equal round and reactive to light, extra-ocular motions intact. Lids and lashes normal. Conjunctiva and sclera are non-icteric and not injected. Cornea within normal limits. Periorbital areas with no swelling, redness, or edema. Neck: Trachea midline, no thyromegaly or masses palpated, and no cervical lymphadenopathy. Supple, full range of motion without nuchal rigidity, or vertebral point tenderness. No Meningismus. Chest/axilla: Normal chest wall appearance and motion. Nontender with no deformity. No lesions are appreciated. Cardiovascular: Regular rate and rhythm with a normal S1 and S2. Normal PMI, no JVD. No pulse deficits. Respiratory: Lungs have equal breath sounds bilaterally, clear to auscultation. No rales, rhonchi or wheezes noted. No increased work of breathing, no retractions or nasal flaring. Back: No spinal tenderness. No costovertebral tenderness. Full range of motion. MS/ Extremity: Pulses equal, no cyanosis. Neurovascular intact. Full, normal range of motion. Neuro: Awake and alert, GCS 15, oriented to person, place, time, and situation. Cranial nerves II-XII grossly intact. Motor strength 5/5 in all extremities. Sensory grossly intact. Cerebellar exam normal. Normal gait. 10:56 Skin: abscess, that is moderate sized, of the upper thoracic area, with fluctuance, that is moderate, cellulitis, that is moderate, on the back, Vital Signs: 08:56 BP 155 / 112; Pulse 89; Resp 18; Temp 99(O); Pulse Ox 100% on R/A; Weight 163.29 kg; mb9 Height 6 ft. 1 in. ; Pain 6/10; 09:48 BP 153 / 114; Pulse 85; Resp 18; Pulse Ox 100% on R/A; mb9 08:56 Body Mass Index 47.49 (163.29 kg, 185.42 cm) 9 08:56 Pain Scale: Adult mb9 Procedures: 10:56 I \T\ D: Incision and drainage was performed for an abscess of the mid upper back Prepped dr5 with alcohol, Anesthetized with 3 ml's 1% Lidocaine. Incised with #11 blade. Drained moderate amount purulent fluid. bloody fluid. Loculations removed. Abscess cavity explored. Dressing: sterile 4x4 gauze, the patient tolerated the procedure well. MDM: 08:47 Medical Screening Exam initiated dr5 10:56 Differential diagnosis: viral Infection, Abscess, cellulitis, sebaceous cyst. Data dr5 reviewed: vital signs, nurses notes. Management of patient was discussed with the following:. I considered the following discharge prescriptions or medication management in the emergency department I discussed and recommended Over The Counter medications, Medications were administered in the Emergency Department. See MAR. Historians other than the Patient: Spouse/Significant Other: at bedside. Care significantly affected by the following chronic conditions: Diabetes, Hypertension. Care significantly affected by the following Social Determinants of Health: Poor access to healthcare and/or lack of insurance, Poor access to transportation, Problems related to employment. Counseling: I had a detailed discussion with the patient and/or guardian regarding the historical points, exam findings, and any diagnostic results supporting the discharge/admit diagnosis, the presence of at least one elevated blood pressure reading (>120/80) during this emergency department visit, the need for outpatient follow up, for definitive care, a bottle caser, a family practitioner, to return to the emergency department if symptoms worsen or persist or if there are any questions or concerns that arise at home. Medication response: Lidocaine, [place]. Response to treatment: the patient's symptoms have markedly improved after treatment. Admission orders: after a detailed discussion of the patient's condition and case, the admit orders are written by me. Special discussion: I discussed with the patient/guardian in detail that at this point there is no indication for admission to the hospital. It is understood, however, that if the symptoms persist or worsen the patient needs to return immediately for re-evaluation. Based on the presenting symptoms and work-up in the emergency department, I discussed in detail the need to arrange with the PCP or specialist an outpatient procedure, Cyst removal. Based on the history and exam findings, there is no indication for further emergent testing or inpatient evaluation. I discussed with the patient/guardian the need to see the bottle caser for further evaluation of the symptoms. I discussed with the patient/guardian the need to see the primary care provider for further evaluation of the symptoms. ED course: Will refill patient's medications for hypertension and diabetes. Incision and drainage completed with purulent and bloody discharge and relief of symptoms. Will place patient on antibiotics and have him follow-up primary care doctor for recheck of wound as well as prescription management. Patient is agreeable to plan. All questions answered. Strict ER precautions given. 08/05 09:09 Order name: Incision \T\ Drainage Setup; Complete Time: 09:20 dr5 Administered Medications: 09:20 Drug: Lidocaine Infiltration (1 %) 20 ml 20 ml Infiltration once; to bedside Volume: 20 mb9 ml; Route: Infiltration; 09:40 Drug: HYDROcodone-acetaminophen PO 5 mg-325 mg 2 tabs PO once Route: PO; mb9 09:49 Follow up: Response: No adverse reaction mb9 Disposition: 19:14 Co-signature as Attending Physician, Batsheva Munoz MD I reviewed the patient's care gb1 provided by the Advanced Practice Provider and agree with the diagnosis and treatment plan. Disposition Summary: 08/05/25 09:37 Discharge Ordered Notes: Location: Home dr5 Condition: Stable dr5 Diagnosis - Cutaneous abscess of back [any part, except buttock] dr5 Followup: dr5 - With: Emergency Department - When: As needed - Reason: Worsening of condition Followup: dr5 - With: Private Physician - When: 1 - 2 days - Reason: Recheck today's complaints, Continuance of care, Re-evaluation by your physician Discharge Instructions: - Discharge Summary Sheet dr5 - Skin Abscess dr5 - Incision and Drainage dr5 Forms: - Work release form ss - Medication Reconciliation Form dr5 - Antibiotic Education dr5 - Prescription Opioid Use dr5 - Patient Portal Instructions dr5 - Leadership Thank You Letter dr5 Prescriptions: - carvedilol 12.5 mg Oral tablet - take 2 tablet ORAL route 2 times per day for 30 days must administer with a dr5 meal/food; 120 tablet; Refills: 0, Product Selection Permitted - glipizide 2.5 mg Oral Tablet, Extended Release 24 hr - take 1 tablet ORAL route daily; 30 tablet; Refills: 0, Product Selection dr5 Permitted - Cephalexin 500 mg Oral Capsule - take 1 capsule ORAL route every 12 hours for 10 days; 20 capsule; Refills: 0, dr5 Product Selection Permitted - Tramadol 50 mg Oral Tablet - take 1 tablet ORAL route every 8 hours as needed; 12 tablet; Refills: 0, dr5 Product Selection Permitted Signatures: Hawa Day RN RN mb9 Batsheva Munoz MD MD gb1 Bonilla Lind, MILKING MACHINE TECHNICIAN-C MILKING MACHINE TECHNICIAN-Cdr5
--- NOTE | 2025-08-05 09:38 | ER ---
Nurse's Notes [facility] Name: Tyler Latif Age: 34 yrs Sex: Male : 1990 Arrival Date: 08/05/2025 Time: 08:43 Bed 4 Private MD: Diagnosis: Cutaneous abscess of back [any part, except buttock] Presentation: 08/05 08:56 Chief complaint: Patient states: "I noticed a bump and knot on my upper back for the mb9 past 3 weeks. It's slowly getting more painful and larger.". Coronavirus screen: Vaccine status: Patient reports being unvaccinated. 08:56 Method Of Arrival: Ambulatory mb9 08:56 Ebola Screen: No symptoms or risks identified at this time. Initial Sepsis Screen: Does mb9 the patient meet any 2 criteria? No. Patient's initial sepsis screen is negative. Does the patient have a suspected source of infection? No. Patient's initial sepsis screen is negative. Risk Assessment: Do you want to hurt yourself or someone else? Patient reports no desire to harm self or others. Onset of symptoms was July 19, 2025. 08:56 Acuity: SAUL 3 mb9 Triage Assessment: 09:00 General: Appears in no apparent distress. Behavior is calm, cooperative. Pain: mb9 Complains of pain in back Pain does not radiate. Pain currently is 6 out of 10 on a pain scale. Quality of pain is described as throbbing, Is intermittent. EENT: No signs and/or symptoms were reported regarding the EENT system. Neuro: Oliver Agitation-Sedation Scale (RASS): 0 - Alert and Calm Level of Consciousness is awake, alert, obeys commands, Oriented to person, place, time, situation, Appropriate for age. Cardiovascular: Denies chest pain, Heart tones S1 S2 present Patient's skin is warm and dry. Respiratory: Airway is patent Respiratory effort is even, unlabored, Respiratory pattern is regular, symmetrical, Breath sounds are clear bilaterally. GI: No signs and/or symptoms were reported involving the gastrointestinal system. : No signs and/or symptoms were reported regarding the genitourinary system. Derm: Abscess located on back is golf ball sized, is hot to touch, is raised. Historical: - Allergies: 08:58 metformin; mb9 - Home Meds: 08:58 carvedilol 25 mg oral tablet 1 tab 2 times per day [Active]; glipizide 2.5 mg Oral mb9 tablet 1 tab daily [Active]; - PMHx: 08:58 Diabetes - NIDDM; Hypertension; mb9 - PSHx: 08:58 hand surgery (en); mb9 - Immunization history:: Adult Immunizations up to date. - Infectious Disease History:: Denies. - Social history:: Smoking status: Patient reports the use of cigarette tobacco products, smokes one-half pack cigarettes per day. Screenin:02 [facility] ED Fall Risk Assessment (Adult) History of falling in the last 3 months, mb9 including since admission No falls in past 3 months (0 pts) Confusion or Disorientation No (0 pts) Intoxicated or Sedated No (0 pts) Impaired Gait No (0 pts) Mobility Assist Device Used No (0 pt) Altered Elimination No (0 pt) Score/Fall Risk Level 0 - 2 = Low Risk Oriented to surroundings, Maintained a safe environment, Educated pt \\T\\ family on fall prevention, incl call for assistance when getting out of bed. Abuse screen: Denies threats or abuse. Nutritional screening: No deficits noted. Tuberculosis screening: No symptoms or risk factors identified. Assessment: 09:01 Reassessment: see triage assessment. mb9 09:48 Reassessment: Patient appears in no apparent distress at this time. No changes from mb9 previously documented assessment. Patient and/or family updated on plan of care and expected duration. Pain level reassessed. Patient is alert, oriented x 3, equal unlabored respirations, skin warm/dry/pink. Vital Signs: 08:56 BP 155 / 112; Pulse 89; Resp 18; Temp 99(O); Pulse Ox 100% on R/A; Weight 163.29 kg; mb9 Height 6 ft. 1 in. ; Pain 6/10; 09:48 BP 153 / 114; Pulse 85; Resp 18; Pulse Ox 100% on R/A; mb9 08:56 Body Mass Index 47.49 (163.29 kg, 185.42 cm) mb9 08:56 Pain Scale: Adult mb9 ED Course: 08:45 Patient arrived in ED. im 08:47 Bonilla Lind FNP-C is PHCP. dr5 08:47 Batsheva Munoz MD is Attending Physician. dr5 08:50 Hawa Day, RN is Primary Nurse. mb9 08:58 Triage completed. mb9 09:01 Arm band placed on. mb9 09:02 Placed in gown. Bed in low position. Call light in reach. Side rails up X 1. Provided kobe9 Education on: press call light if needing anything. Client placed on continuous cardiac and pulse oximetry monitoring. NIBP monitoring applied. 09:30 Assist provider with I \\T\\ D: of an abscess on Set up I\\T\\D tray. Performed by Bonilla MCDERMOTT-Ruthie Dressing with 4X4s, Patient tolerated well. 09:48 Patient did not have IV access during this emergency room visit. mb9 Administered Medications: 09:20 Drug: Lidocaine Infiltration (1 %) 20 ml 20 ml Infiltration once; to bedside Volume: 20 mb9 ml; Route: Infiltration; 09:40 Drug: HYDROcodone-acetaminophen PO 5 mg-325 mg 2 tabs PO once Route: PO; mb9 09:49 Follow up: Response: No adverse reaction mb9 Medication: 09:03 VIS not applicable for this client. mb9 Outcome: 09:37 Discharge ordered by MD. dr5 09:48 Discharged to home ambulatory, with family, mb9 09:48 Condition: stable 09:48 Discharge instructions given to patient, family, Instructed on discharge instructions, follow up and referral plans. Demonstrated understanding of instructions, follow-up care, medications, Prescriptions given X 4, 09:49 Patient left the ED. mb9 Signatures: Hawa Day RN RN mb9 Alisia Wei Dustin, FNP-C FARE REGISTER REPAIRER-Cdr5 Corrections: (The following items were deleted from the chart) 08:58 08:56 Coronavirus screen: Vaccine status: Patient reports being unvaccinated. mb9 mb9 09:00 08:56 Pulse 89bpm; Resp 18bpm; Pulse Ox 100% RA; Temp 99F Oral; 163.29 kg; Height 6 ft. mb9 1 in.; BMI: 47.5; Pain 6/10, Adult; mb9
[2025-08-05] MEDS ORDERED: HYDROCODONE/APAP 5/325 MG TAB ONE (09:44)
[2025-08-05 10:06] VITALS: TEMP 99; O2SAT 100
[2025-08-05 10:07] VITALS: BP 153/114
== END 2025-08-05 09:49 | disposition home or self-care (01) ==
LOC: ER 08:43
PROC: 0H96XZZ Drainage of Back Skin, External Approach (ICD-10-PCS; principal; 2025-08-05)
DX: L02.212 Cutaneous abscess of back [any part, except buttock and flank] (principal)
CPT/HCPCS: 99284; 10060; J2003